=== PATIENT | male | born 1935 | race Caucasian/White ===

== ENCOUNTER 2017-02-28 06:47 | Inpatient (IN) | payer MEDICARE, OTHER ==
[~2017-02-28] VITALS: Ht 175.3 cm; Wt 79.9 kg
--- NOTE | 2017-02-28 07:24 | EKG ---
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
[2017-02-28 07:27] LABS: GFR 72.1; HEMATOCRIT 43.1 % (39.0-53.0); HEMOGLOBIN 14.8 g/dL (13.0-17.5); RED BLOOD COUNT 4.93 x10^6/uL (4.30-5.70); RED CELL DISTRIBUTION WIDTH 13.8 % (11.5-14.5); WHITE BLOOD COUNT 7.2 x10^3/uL (4.0-11.0)
[2017-02-28 07:34] LABS: PROTHROMBIN TIME PATIENT 12.8 SEC (11.7-14.0)
--- NOTE | 2017-02-28 08:00 | PHYS DOC ---
Past Medical History Past Medical History: High Cholesterol, Hypertension Past Surgical History: No Surgical History Alcohol Use: None Drug Use: None Adult General Chief Complaint Chief Complaint: HYPERTENSION HPI HPI 81-year-old male presenting to the emergency department today lasted normal at around midnight last night prior to going to bed. This morning he wakes up with numbness and tingling in his left hand and jaw with weakness. He reports symptoms that his left hand does not feel like his own. He also has difficulty buttoning his shirt and timing issues with his left hand. Patient took aspirin prior to arrival. Blood glucose within normal limits. He denies having any other major medical conditions. He has a history of high blood pressure and high cholesterol. He denies having history of diabetes. He denies having history of strokes. He does have a history of smoking. Location left arm. Duration intermittent. No alleviating or exacerbating factors present. Review of systems is negative for chest pain shortness of breath nausea vomiting fevers chills headache vision changes. He denies slurred speech. He denies gait instability. All other review of systems is negative unless otherwise noted in history of present illness. ED course: 81-year-old male presenting to the emergency department today with intermittent numbness of his left hand into his left jaw with difficulty tying his shoes and buttoning his shirt last known well at midnight last night. The patient does describe symptoms concerning for possible alien hand syndrome. CT head ordered. Blood work obtained. NIH stroke scale performed which showed a stroke scale of 0. Triage vital signs afebrile with a normal heart rate. Hypertensive upon arrival. Patient is resting comfortably examination room. EKG obtained without previous for comparison. Sinus rhythm with a regular rate. no afib. Patient has mild repolarization in lead V2 without reciprocal depression. Patient is not having clinical symptoms of ACS. T-wave flattening inversions in the inferior leads. Nonspecific. Blood work obtained and unremarkable. The patient was then admitted to our hospital for further evaluation workup including neurology consultation and probable MRI. Review of Systems Review of Systems SEE ABOVE. Allergies Allergies Allergies Coded Allergies Type Severity Reaction Last Updated Verified No Known Drug Allergies 02/28/17 No Physical Exam Physical Exam SEE ABOVE Constitutional: Well developed, well nourished, no acute distress, non-toxic appearance. HENT: Normocephalic, atraumatic, bilateral external ears normal, oropharynx moist, no oral exudates, nose normal. [] Eyes: PERRLA, EOMI, conjunctiva normal, no discharge. [] Neck: Normal range of motion, no tenderness, supple, no stridor. Cardiovascular:Heart rate regular rhythm, no murmur [] Lungs & Thorax: Bilateral breath sounds clear to auscultation Abdomen: Bowel sounds normal, soft, no tenderness, no masses, no pulsatile masses. [] Skin: Warm, dry, no erythema, no rash. Back: No tenderness, no CVA tenderness. [] Extremities: No tenderness, no cyanosis, no clubbing, ROM intact, no edema. [] Neurologic: Alert and oriented X 3, normal motor function, normal sensory function, no focal deficits noted. Psychologic: Affect normal, judgement normal, mood normal. [] Current Patient Data Vital Signs Vital Signs Date Time Temp Pulse Resp B/P (MAP) Pulse Ox O2 Delivery O2 Flow Rate FiO2 02/28/17 07:01 97.6 63 18 178/89 (118) 94 Room Air 97.6 Lab Values Laboratory Tests Test 02/28/17 07:05 White Blood Count 7.2 x10^3/uL (4.0-11.0) Red Blood Count 4.93 x10^6/uL (4.30-5.70) Hemoglobin 14.8 g/dL (13.0-17.5) Hematocrit 43.1 % (39.0-53.0) Mean Corpuscular Volume 87 fL (79-100) Mean Corpuscular Hemoglobin 30 pg (25-35) Mean Corpuscular Hemoglobin Concent 34 g/dL (31-37) Red Cell Distribution Width 13.8 % (11.5-14.5) Platelet Count 169 x10^3/uL (140-400) Prothrombin Time 12.8 SEC (11.7-14.0) Prothrombin Time INR 1.0 (0.8-1.1) PTT 27 SEC (24-38) Sodium Level 140 mmol/L (136-145) Potassium Level 4.0 mmol/L (3.5-5.1) Chloride Level 104 mmol/L (98-107) Carbon Dioxide Level 31 mmol/L (21-32) Anion Gap 5 (6-14) L Blood Urea Nitrogen 18 mg/dL (8-26) Creatinine 1.0 mg/dL (0.7-1.3) Estimated GFR (Cockcroft-Gault) 72.1 Glucose Level 105 mg/dL (70-99) H Calcium Level 9.0 mg/dL (8.5-10.1) Laboratory Tests 02/28/17 07:05 Laboratory Tests 02/28/17 07:05 EKG EKG [] Radiology/Procedures Radiology/Procedures [] Course & Med Decision Making Course & Med Decision Making Pertinent Labs and Imaging studies reviewed. (See chart for details) [] Dragon Disclaimer Dragon Disclaimer This electronic medical record was generated, in whole or in part, using a voice recognition dictation system. Departure Departure Impression: Primary Impression: TIA (transient ischemic attack) Disposition: ADMITTED INPATIENT Admitting Physician: Louis Moyer Condition: STABLE Referrals: NO PCP (PCP) KAMINI ZACARIAS MD Feb 28, 2017 08:00
--- NOTE | 2017-02-28 08:13 | RAD ---
Clinical indications: Woke up this morning with left-sided weakness and jaw pain.. Comparison: None available. Technique: Noncontrast axial cross sectional scanning of the head was performed. Findings: Mild generalized cerebral atrophy is seen. No acute intracranial hemorrhage or midline shift or mass-effect or hydrocephalus or extra-axial fluid collection is seen. Mild bilateral periventricular white matter hypodensity is seen consistent with chronic small vessel ischemic disease in this age group. No skull fracture or pneumocephalus is seen. No opacification of the mastoid sinuses or the paranasal sinuses is seen. The maxillary sinuses are not completely seen in this study. Impression: No acute intracranial hemorrhage is seen. Mild chronic small vessel ischemic disease. PQRS Compliance Statement: One or more of the following individualized dose reduction techniques were utilized for this examination: 1. Automated exposure control 2. Adjustment of the mA and/or kV according to patient size 3. Use of iterative reconstruction technique
[2017-02-28] MEDS ORDERED: ACETAMINOPHEN 325 MG TABLET. PO ONE (08:30)
--- NOTE | 2017-02-28 08:59 | PDOC2 ---
NEUROLOGY CONSULT Date of Admission Date of Admission DATE: 02/28/17 TIME: 08:52 Reason for Consult Reason for Consult: Stroke symptoms Referring Physician Referring Physician: Dr. Mitchell PCP: [facility] Source Source: Chart review, Patient History of Present Illness History of Present Illness Patient is a 81-year-old right-handed male who woke up about 3 AM this morning with left hand numbness. He has been noticing the problem for about a month actually intermittently, especially when he sleeps on that side. His left arm seems strange to him and was clumsy. There were no symptoms in the leg but he does admit to some paresthesias behind the left ear. He denies any headache or neck pain. He denies diplopia, dysphagia, or dysarthria. Symptoms resolved by the time he reached the emergency department. I discussed the case with Dr. Noel and we agreed the patient was not a candidate for alteplase. The patient takes listener PERRL. He does not know his cholesterol status. He did take some aspirin this morning but does not generally take aspirin. 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 14 point review of systems is negative. Physical Exam Physical Examination PHYSICAL EXAMINATION: Vital signs: see above. General appearance is normal and in no acute distress. HEENT: Normocephalic and nontraumatic. Eyes, nose, ears, and throat are unremarkable. Neck is supple. No lymphadenopathy. No bruits are heard over the carotid artery. No crepitus. NEUROLOGICAL EXAMINATION: Mental Status Examination: Alert. Oriented to time, place, and person. Answers questions and follows commends. Pupils are equal round and reactive to light and accommodation. Extraocular movements are intact. Visual field exam shows no defect on the direct confrontation. No motor or sensory deficits on the facial exam. Uvula in the midline and the soft palate elevated symmetrically. No deviation of the tongue to any direction. Gross hearing is normal. Shoulder shrug normal. Muscle tone is normal. Muscle strength is 5. Deep tendon reflexes are 2+ all around. Plantar reflex is with flexion response bilaterally. [id number] test performance is accurate. Tandem walk test is accurate. Alternative movements are accurate. Romberg test is negative. Gait is normal. Sensory exam shows no deficits. No cerebellar signs are elicited. Vitals VITALS Vital Signs Date Time Temp Pulse Resp B/P (MAP) Pulse Ox O2 Delivery O2 Flow Rate FiO2 02/28/17 07:01 97.6 63 18 178/89 (118) 94 Room Air 97.6 Labs Labs Laboratory Tests Test 02/28/17 07:05 White Blood Count 7.2 x10^3/uL (4.0-11.0) Red Blood Count 4.93 x10^6/uL (4.30-5.70) Hemoglobin 14.8 g/dL (13.0-17.5) Hematocrit 43.1 % (39.0-53.0) Mean Corpuscular Volume 87 fL (79-100) Mean Corpuscular Hemoglobin 30 pg (25-35) Mean Corpuscular Hemoglobin Concent 34 g/dL (31-37) Red Cell Distribution Width 13.8 % (11.5-14.5) Platelet Count 169 x10^3/uL (140-400) Prothrombin Time 12.8 SEC (11.7-14.0) Prothromb Time International Ratio 1.0 (0.8-1.1) Activated Partial Thromboplast Time 27 SEC (24-38) Sodium Level 140 mmol/L (136-145) Potassium Level 4.0 mmol/L (3.5-5.1) Chloride Level 104 mmol/L (98-107) Carbon Dioxide Level 31 mmol/L (21-32) Anion Gap 5 (6-14) Blood Urea Nitrogen 18 mg/dL (8-26) Creatinine 1.0 mg/dL (0.7-1.3) Estimated GFR (Cockcroft-Gault) 72.1 Glucose Level 105 mg/dL (70-99) Calcium Level 9.0 mg/dL (8.5-10.1) Laboratory Tests Test 02/28/17 07:05 White Blood Count 7.2 x10^3/uL (4.0-11.0) Red Blood Count 4.93 x10^6/uL (4.30-5.70) Hemoglobin 14.8 g/dL (13.0-17.5) Hematocrit 43.1 % (39.0-53.0) Mean Corpuscular Volume 87 fL (79-100) Mean Corpuscular Hemoglobin 30 pg (25-35) Mean Corpuscular Hemoglobin Concent 34 g/dL (31-37) Red Cell Distribution Width 13.8 % (11.5-14.5) Platelet Count 169 x10^3/uL (140-400) Prothrombin Time 12.8 SEC (11.7-14.0) Prothromb Time International Ratio 1.0 (0.8-1.1) Activated Partial Thromboplast Time 27 SEC (24-38) Sodium Level 140 mmol/L (136-145) Potassium Level 4.0 mmol/L (3.5-5.1) Chloride Level 104 mmol/L (98-107) Carbon Dioxide Level 31 mmol/L (21-32) Anion Gap 5 (6-14) Blood Urea Nitrogen 18 mg/dL (8-26) Creatinine 1.0 mg/dL (0.7-1.3) Estimated GFR (Cockcroft-Gault) 72.1 Glucose Level 105 mg/dL (70-99) Calcium Level 9.0 mg/dL (8.5-10.1) Images Images CT head: Findings: Mild generalized cerebral atrophy is seen. No acute intracranial hemorrhage or midline shift or mass-effect or hydrocephalus or extra-axial fluid collection is seen. Mild bilateral periventricular white matter hypodensity is seen consistent with chronic small vessel ischemic disease in this age group. No skull fracture or pneumocephalus is seen. No opacification of the mastoid sinuses or the paranasal sinuses is seen. The maxillary sinuses are not completely seen in this study. Impression: No acute intracranial hemorrhage is seen. Mild chronic small vessel ischemic disease. Assessment/Plan Assessment/Plan Impression: Transient ischemic attack, symptoms could simply be entrapment neuropathy such as carpal tunnel but he also had some trouble in the head with numbness. He has been having symptoms for nearly a month so it is very important for admission, most likely 2 midnight, to make sure that he does not have any occlusive disease that could cause a full stroke. However, since symptoms have resolved, as already discussed above, he is not a candidate for alteplase. Recommendations: Daily aspirin MRI of the brain Echocardiogram Carotid Dopplers Rehabilitation screening Atorvastatin Check lipids If all workup negative, the patient should follow-up in my office for an EMG study of the left upper extremity. Thank you for letting me help with the patient's care. ORTEGA MUNROE MD Feb 28, 2017 08:59
[2017-02-28] MEDS ORDERED: ACETAMINOPHEN 650 MG SUPP.RECT. PR PRN (09:00)
[2017-02-28] MEDS ORDERED: ACETAMINOPHEN 325 MG TABLET. PO PRN ×2 (09:00→14:45)
[2017-02-28 09:09] LABS: CHOLESTEROL/HDL RATIO 3.4
[2017-02-28] MEDS ORDERED: IV NORMAL SALINE 1000ML BAG 1,000 ML IV SCH (09:30)
[2017-02-28] MEDS: ASPIRIN CHEWABLE 81 MG TABLET. PO SCH (09:30)
--- NOTE | 2017-02-28 10:18 | RAD ---
EXAM: Brain MRI without contrast. HISTORY: Left-sided weakness. TECHNIQUE: Multiplanar, multisequence magnetic resonance imaging of the brain was performed without contrast. COMPARISON: Head CT obtained on the same date. FINDINGS: There are small focal areas of slight increased signal on diffusion weighted images within the posterior right frontal and parietal lobe cortex, suggesting small subacute infarcts. There is similar less conspicuous increased signal within the contralateral parietal cortex which is likely artifactual. There is no susceptibility effect to suggest hemorrhage. There is no mass effect or midline shift. There is cerebral volume loss with compensatory enlargement of the ventricles. There is signal change within the cerebral white matter and margarette, a nonspecific finding likely due to chronic small vessel disease. There is a suspected chronic lacunar infarct within the left thalamus. There is evidence of lens surgery. There is a right sam bullosa and small left maxillary sinus mucous retention cyst. The mastoid air cells are unremarkable. There is decreased flow void within the right vertebral artery at the skull base which is not seen on consecutive images and likely due to artifact rather than low flow or occlusion. IMPRESSION: 1. Small areas of increased signal on diffusion weighted images within the posterior right frontal and parietal lobe cortex and subcortical white matter, suggesting subacute infarcts. 2. Signal change within the cerebral white matter and margarette, likely due to chronic small vessel disease. 3. Cerebral atrophy. Findings were discussed with Dr. Noel in the ED at 0945 hours on 02/28/2017. Electronically signed by: Marlen Buckley MD (02/28/2017 10:15 AM) [id number]
[2017-02-28 11:00] VITALS: BP 189/79
--- NOTE | 2017-02-28 13:34 | RAD ---
EXAM: Carotid Doppler sonogram. HISTORY: Left arm and hand numbness. Transient ischemic attack. TECHNIQUE: Quiles scale and color Doppler sonographic evaluation of the neck with spectral waveform analysis was performed and static images are submitted for review. FINDINGS: RIGHT: The peak systolic velocity within the common carotid artery is 113 cm/sec. The peak systolic velocity within the internal carotid artery is 370 cm/sec and the end diastolic velocity within the internal carotid artery is 104 cm/sec. The ICA/CCA ratio is 3.8. LEFT: The peak systolic velocity within the common carotid artery is 123 cm/sec. The peak systolic velocity within the internal carotid artery is 273 cm/sec and the end diastolic velocity within the internal carotid artery is 47 cm/sec. The ICA/CCA ratio is 2.6. There is antegrade flow within both vertebral arteries. IMPRESSION: 1. >70% stenosis in the right mid and distal internal carotid artery. 2. >70% stenosis within the left mid internal carotid artery. 3. Ongoing management is recommended. PQRS Compliance Statement - Stenosis calculations for CT, MR and conventional angiography are based upon measurement of the distal ICA diameter in accordance with the NASCET methodology. Stenosis calculations for carotid ultrasound studies are derived from validated velocity criteria which are known to correlate with the NASCET methodology.
--- NOTE | 2017-02-28 14:44 | PDOC1 ---
History and Physical Date of Admission Date of Admission 02/28/17 Identification/Chief Complaint Chief Complaint left arm/hand numbness, weakness Problems: Source Source: Chart review, Patient History of Present Illness History of Present Illness HPI HPI 81-year-old male presenting to the emergency department today for left arm/ hand numbness and weakness. Pt has HTN, HLD , BP usually runs at 170s. He has had left hand numbness with mild finger weakness intermittently for a few weeks. last night got worse and came here. Rt handed. denies headache, slurry speech ,swallow problem, or other neurologic deficit. when i saw him in the room, the symptoms are gone. took asa before, not recently. He denies having history of strokes. He does have a history of smoking. pt was found bp >200 in ER, was put on cardine drip. MRI showed subacute stroke. Past Medical History Cardiovascular: HTN, Hyperlipidemia Past Surgical History Past Surgical History: No pertinent history Family History Family History: Hypertension Social History Smoke: Quit ALCOHOL: other (3 beers weekly) Drugs: None Current Problem List Problem List Problems Medical Problems: (1) TIA (transient ischemic attack) Status: Acute Current Medications Current Medications Current Medications Medications (Trade) Dose Ordered Sig/Naa Start Time Stop Time Status Last Admin Dose Admin Acetaminophen (Acetaminophen Supp) 650 mg PRN Q4HRS PRN 02/28/17 09:00 Acetaminophen (Tylenol) 650 mg PRN Q6HRS PRN 02/28/17 09:00 Aspirin (Children'S Aspirin) 81 mg [id number] 02/28/17 09:30 Nicardipine HCl 50 mg/Sodium Chloride 270 ml @ 0 mls/hr CONT PRN 02/28/17 08:15 02/28/17 11:36 DC 02/28/17 08:25 25 MLS/HR Simvastatin (Zocor) 10 mg QHS 02/28/17 21:00 Sodium Chloride 1,000 ml @ 100 mls/hr Q10H 02/28/17 09:30 02/28/17 09:52 100 MLS/HR Allergies Allergies Allergies Coded Allergies Type Severity Reaction Last Updated Verified No Known Drug Allergies 02/28/17 No ROS Review of System CONSTITUTIONAL: No fever or chills EYES: No recent changes SKIN: No rash or itching CARDIOVASCULAR: No chest pain, syncope, palpitations, or edema RESPIRATORY: No SOB or cough GASTROINTESTINAL: No nausea, vomiting or abdominal pain NEUROLOGICAL: No headaches or weakness ENDOCRINE: No cold or heat intolerance GENITOURINARY: No urgency or frequency of urination MUSCULOSKELETAL: No back pain or joint pain LYMPHATICS: No enlarged lymph nodes PSYCHIATRIC: No anxiety or depression Physical Exam Physical Exam GEN.: No apparent distress. Alert and oriented. HEENT: Head is normocephalic, atraumatic NECK: Supple. LUNGS: Clear to auscultation. HEART: RRR, S1, S2 present. Peripheral pulses intact ABDOMEN: Soft, nontender. Positive bowel sounds. EXTREMITIES: Without any cyanosis. bl hands strength symmetric, 5/5. NEUROLOGIC: Normal speech, normal tone PSYCHIATRIC: Normal affect, normal mood. SKIN: No ulcerations Vitals Vitals Vital Signs Date Time Temp Pulse Resp B/P (MAP) Pulse Ox O2 Delivery O2 Flow Rate FiO2 02/28/17 13:47 Room Air 02/28/17 11:00 97.9 81 18 189/79 (115) 96 97.9 Labs Labs Laboratory Tests Test 02/28/17 07:05 White Blood Count 7.2 x10^3/uL (4.0-11.0) Red Blood Count 4.93 x10^6/uL (4.30-5.70) Hemoglobin 14.8 g/dL (13.0-17.5) Hematocrit 43.1 % (39.0-53.0) Mean Corpuscular Volume 87 fL (79-100) Mean Corpuscular Hemoglobin 30 pg (25-35) Mean Corpuscular Hemoglobin Concent 34 g/dL (31-37) Red Cell Distribution Width 13.8 % (11.5-14.5) Platelet Count 169 x10^3/uL (140-400) Prothrombin Time 12.8 SEC (11.7-14.0) Prothromb Time International Ratio 1.0 (0.8-1.1) Activated Partial Thromboplast Time 27 SEC (24-38) Sodium Level 140 mmol/L (136-145) Potassium Level 4.0 mmol/L (3.5-5.1) Chloride Level 104 mmol/L (98-107) Carbon Dioxide Level 31 mmol/L (21-32) Anion Gap 5 (6-14) Blood Urea Nitrogen 18 mg/dL (8-26) Creatinine 1.0 mg/dL (0.7-1.3) Estimated GFR (Cockcroft-Gault) 72.1 Glucose Level 105 mg/dL (70-99) Calcium Level 9.0 mg/dL (8.5-10.1) Triglycerides Level 64 mg/dL (0-150) Cholesterol Level 189 mg/dL (0-200) LDL Cholesterol, Calculated 120 mg/dL (0-100) VLDL Cholesterol, Calculated 13 mg/dL (0-40) Non-HDL Cholesterol Calculated 133 mg/dL (0-129) HDL Cholesterol 56 mg/dL (40-60) Cholesterol/HDL Ratio 3.4 Laboratory Tests Test 02/28/17 07:05 White Blood Count 7.2 x10^3/uL (4.0-11.0) Red Blood Count 4.93 x10^6/uL (4.30-5.70) Hemoglobin 14.8 g/dL (13.0-17.5) Hematocrit 43.1 % (39.0-53.0) Mean Corpuscular Volume 87 fL (79-100) Mean Corpuscular Hemoglobin 30 pg (25-35) Mean Corpuscular Hemoglobin Concent 34 g/dL (31-37) Red Cell Distribution Width 13.8 % (11.5-14.5) Platelet Count 169 x10^3/uL (140-400) Prothrombin Time 12.8 SEC (11.7-14.0) Prothromb Time International Ratio 1.0 (0.8-1.1) Activated Partial Thromboplast Time 27 SEC (24-38) Sodium Level 140 mmol/L (136-145) Potassium Level 4.0 mmol/L (3.5-5.1) Chloride Level 104 mmol/L (98-107) Carbon Dioxide Level 31 mmol/L (21-32) Anion Gap 5 (6-14) Blood Urea Nitrogen 18 mg/dL (8-26) Creatinine 1.0 mg/dL (0.7-1.3) Estimated GFR (Cockcroft-Gault) 72.1 Glucose Level 105 mg/dL (70-99) Calcium Level 9.0 mg/dL (8.5-10.1) Triglycerides Level 64 mg/dL (0-150) Cholesterol Level 189 mg/dL (0-200) LDL Cholesterol, Calculated 120 mg/dL (0-100) VLDL Cholesterol, Calculated 13 mg/dL (0-40) Non-HDL Cholesterol Calculated 133 mg/dL (0-129) HDL Cholesterol 56 mg/dL (40-60) Cholesterol/HDL Ratio 3.4 VTE Prophylaxis Ordered VTE Prophylaxis Devices: Yes VTE Pharmacological Prophylaxi: Yes Assessment/Plan Assessment/Plan right frontal and parietal lob small subacute stroke htn urgency hld bl carotid internal A >70% stenosis plan: dc cardine drip fu with neuro echo pending need home meds BP STILL high ,add lisinopril for now, hydralazine prn add lipitor cont asa dvt ppx vascular consult TERESO MILLER MD Feb 28, 2017 14:44
[2017-02-28] MEDS ORDERED: MORPHINE SULFATE 4 MG/ML DISP.SYRIN. IV PRN (14:45)
[2017-02-28] MEDS ORDERED: traMADol 50 MG TABLET PO PRN (14:45)
[2017-02-28] MEDS ORDERED: ONDANSETRON PF 4 MG/2 ML VIAL. IV PRN (14:45)
[2017-02-28] MEDS ORDERED: DOCUSATE SODIUM 100 MG CAPSULE. PO PRN (14:45)
[2017-02-28 14:59] VITALS: BP 146/81
[2017-02-28] MEDS ORDERED: LISINOPRIL 40 MG TABLET. PO SCH (15:00)
[2017-02-28] MEDS: ENOXAPARIN 40 MG/0.4 ML SYRINGE. SQ SCH (15:36)
[2017-02-28] MEDS: hydrALAZINE 20 MG/ML VIAL. IVP PRN (18:30)
[2017-02-28 19:00] VITALS: BP 147/87
[2017-02-28] MEDS ORDERED: ATEN25TA PO (20:19)
[2017-02-28] MEDS: ATORVASTATIN CALCIUM 40 MG TABLET. PO SCH (20:45)
[2017-02-28] MEDS ORDERED: SIMVASTATIN 10 MG TABLET PO SCH (21:00)
[2017-02-28 22:03] VITALS: BP 161/79
[2017-03-01] VITALS (7 sets, daily range): BP systolic 152–185; BP diastolic 83–96
[2017-03-01 05:37] LABS: BASO # 0.1 x10^3/uL (0.0-0.2); BASO % 1 % (0-3); EOS % 2 % (0-3); HEMATOCRIT 42.6 % (39.0-53.0); HEMOGLOBIN 14.4 g/dL (13.0-17.5); LYMPH # 1.9 x10^3/uL (1.0-4.8); LYMPH % 22 % (24-48); MEAN CORPUSCULAR HEMOGLOBIN 30 pg (25-35); MEAN CORPUSCULAR HGB CONC 34 g/dL (31-37); MEAN CORPUSCULAR VOLUME 88 fL (79-100); MONO % 10 % (0-9); NEUT % 66 % (31-73); PLATELET COUNT 170 x10^3/uL (140-400); RED BLOOD COUNT 4.84 x10^6/uL (4.30-5.70); RED CELL DISTRIBUTION WIDTH 13.9 % (11.5-14.5); WHITE BLOOD COUNT 8.5 x10^3/uL (4.0-11.0)
[2017-03-01 06:01] LABS: CALCIUM 8.6 mg/dL (8.5-10.1); GFR 72.1; POTASSIUM 3.5 mmol/L (3.5-5.1)
[2017-03-01] MEDS: ATENOLOL 25 MG TABLET. PO SCH (07:51)
[2017-03-01] MEDS: ASPIRIN CHEWABLE 81 MG TABLET. PO SCH (07:51)
[2017-03-01] MEDS: CLOPIDOGREL BISULFATE 75 MG TABLET PO SCH (08:04)
--- NOTE | 2017-03-01 08:09 | PDOC ---
Provider Note Provider Note Vascular Consult dictated Imp: Severe tiffanie. carotid stenosis, symptomatic rt. carotid Plan: Plavix in addition to ASA daily, Recommend a rt. carotid endarterectomy early next week, Pt. wants to go home and wants me to do surgery but I am out of town next week. Will schedule rt. CEA for Feb. If pt. developes more symptoms then he would need an urgent rt. CEA. Will inform Dr. Lau who is work station support specialist GERA CONTE MD Mar 01, 2017 08:09
--- NOTE | 2017-03-01 11:58 | PDOC ---
PROGRESS NOTES Chief Complaint Chief Complaint right frontal and parietal lob small subacute stroke htn urgency hld bl carotid internal A >70% stenosis History of Present Illness History of Present Illness Pt seen at bedside on cardiovascular floor. Is AOCx3 in NAD. Pt was educated on doing CEA as inpatient or scheduling procedure as an outpatient; per Dr. Alvarez it is preferred that he remain here for time being to undergo procedure on inpatient basis. Will continue to monitor. Vitals Vitals Vital Signs Date Time Temp Pulse Resp B/P (MAP) Pulse Ox O2 Delivery O2 Flow Rate FiO2 03/01/17 11:00 97.7 62 18 174/96 (122) 97 Room Air 97.7 Physical Exam General: Alert, Oriented X3, Cooperative, No acute distress Heart: Regular rate, Normal S1, Normal S2 Lungs: Clear Abdomen: Normal bowel sounds, Soft, No tenderness Extremities: No clubbing, No cyanosis, No edema, Normal pulses Skin: No rashes, No breakdown, No significant lesion Labs LABS Laboratory Tests Test 03/01/17 05:00 White Blood Count 8.5 x10^3/uL (4.0-11.0) Red Blood Count 4.84 x10^6/uL (4.30-5.70) Hemoglobin 14.4 g/dL (13.0-17.5) Hematocrit 42.6 % (39.0-53.0) Mean Corpuscular Volume 88 fL (79-100) Mean Corpuscular Hemoglobin 30 pg (25-35) Mean Corpuscular Hemoglobin Concent 34 g/dL (31-37) Red Cell Distribution Width 13.9 % (11.5-14.5) Platelet Count 170 x10^3/uL (140-400) Neutrophils (%) (Auto) 66 % (31-73) Lymphocytes (%) (Auto) 22 % (24-48) Monocytes (%) (Auto) 10 % (0-9) Eosinophils (%) (Auto) 2 % (0-3) Basophils (%) (Auto) 1 % (0-3) Neutrophils # (Auto) 5.6 x10^3uL (1.8-7.7) Lymphocytes # (Auto) 1.9 x10^3/uL (1.0-4.8) Monocytes # (Auto) 0.8 x10^3/uL (0.0-1.1) Eosinophils # (Auto) 0.1 x10^3/uL (0.0-0.7) Basophils # (Auto) 0.1 x10^3/uL (0.0-0.2) Sodium Level 141 mmol/L (136-145) Potassium Level 3.5 mmol/L (3.5-5.1) Chloride Level 105 mmol/L (98-107) Carbon Dioxide Level 28 mmol/L (21-32) Anion Gap 8 (6-14) Blood Urea Nitrogen 13 mg/dL (8-26) Creatinine 1.0 mg/dL (0.7-1.3) Estimated GFR (Cockcroft-Gault) 72.1 Glucose Level 96 mg/dL (70-99) Calcium Level 8.6 mg/dL (8.5-10.1) Review of Systems Review of Systems Pt AOCx3, in NAD. Heart RRR no M. Lungs clear in all [place]. EOMI b/l, no facial palsy, no dysarthria. Assessment and Plan Assessmemt and Plan Problems Medical Problems: (1) TIA (transient ischemic attack) Status: Acute right frontal and parietal lob small subacute stroke htn urgency hld bl carotid internal A >70% stenosis plan: PT/OT Cont. home meds Cont new BP meds, lipitor F/u w/ Dr. Alvarez Friday when ok w/ cardiology and vasc. surgeon Problems: Comment Review of Relevant I have reviewed the following items michelle (where applicable) has been applied. Labs Laboratory Tests Test 02/28/17 07:05 03/01/17 05:00 White Blood Count 7.2 x10^3/uL (4.0-11.0) 8.5 x10^3/uL (4.0-11.0) Red Blood Count 4.93 x10^6/uL (4.30-5.70) 4.84 x10^6/uL (4.30-5.70) Hemoglobin 14.8 g/dL (13.0-17.5) 14.4 g/dL (13.0-17.5) Hematocrit 43.1 % (39.0-53.0) 42.6 % (39.0-53.0) Mean Corpuscular Volume 87 fL (79-100) 88 fL (79-100) Mean Corpuscular Hemoglobin 30 pg (25-35) 30 pg (25-35) Mean Corpuscular Hemoglobin Concent 34 g/dL (31-37) 34 g/dL (31-37) Red Cell Distribution Width 13.8 % (11.5-14.5) 13.9 % (11.5-14.5) Platelet Count 169 x10^3/uL (140-400) 170 x10^3/uL (140-400) Prothrombin Time 12.8 SEC (11.7-14.0) Prothromb Time International Ratio 1.0 (0.8-1.1) Activated Partial Thromboplast Time 27 SEC (24-38) Sodium Level 140 mmol/L (136-145) 141 mmol/L (136-145) Potassium Level 4.0 mmol/L (3.5-5.1) 3.5 mmol/L (3.5-5.1) Chloride Level 104 mmol/L (98-107) 105 mmol/L (98-107) Carbon Dioxide Level 31 mmol/L (21-32) 28 mmol/L (21-32) Anion Gap 5 (6-14) 8 (6-14) Blood Urea Nitrogen 18 mg/dL (8-26) 13 mg/dL (8-26) Creatinine 1.0 mg/dL (0.7-1.3) 1.0 mg/dL (0.7-1.3) Estimated GFR (Cockcroft-Gault) 72.1 72.1 Glucose Level 105 mg/dL (70-99) 96 mg/dL (70-99) Calcium Level 9.0 mg/dL (8.5-10.1) 8.6 mg/dL (8.5-10.1) Triglycerides Level 64 mg/dL (0-150) Cholesterol Level 189 mg/dL (0-200) LDL Cholesterol, Calculated 120 mg/dL (0-100) VLDL Cholesterol, Calculated 13 mg/dL (0-40) Non-HDL Cholesterol Calculated 133 mg/dL (0-129) HDL Cholesterol 56 mg/dL (40-60) Cholesterol/HDL Ratio 3.4 Neutrophils (%) (Auto) 66 % (31-73) Lymphocytes (%) (Auto) 22 % (24-48) Monocytes (%) (Auto) 10 % (0-9) Eosinophils (%) (Auto) 2 % (0-3) Basophils (%) (Auto) 1 % (0-3) Neutrophils # (Auto) 5.6 x10^3uL (1.8-7.7) Lymphocytes # (Auto) 1.9 x10^3/uL (1.0-4.8) Monocytes # (Auto) 0.8 x10^3/uL (0.0-1.1) Eosinophils # (Auto) 0.1 x10^3/uL (0.0-0.7) Basophils # (Auto) 0.1 x10^3/uL (0.0-0.2) Laboratory Tests Test 03/01/17 05:00 White Blood Count 8.5 x10^3/uL (4.0-11.0) Red Blood Count 4.84 x10^6/uL (4.30-5.70) Hemoglobin 14.4 g/dL (13.0-17.5) Hematocrit 42.6 % (39.0-53.0) Mean Corpuscular Volume 88 fL (79-100) Mean Corpuscular Hemoglobin 30 pg (25-35) Mean Corpuscular Hemoglobin Concent 34 g/dL (31-37) Red Cell Distribution Width 13.9 % (11.5-14.5) Platelet Count 170 x10^3/uL (140-400) Neutrophils (%) (Auto) 66 % (31-73) Lymphocytes (%) (Auto) 22 % (24-48) Monocytes (%) (Auto) 10 % (0-9) Eosinophils (%) (Auto) 2 % (0-3) Basophils (%) (Auto) 1 % (0-3) Neutrophils # (Auto) 5.6 x10^3uL (1.8-7.7) Lymphocytes # (Auto) 1.9 x10^3/uL (1.0-4.8) Monocytes # (Auto) 0.8 x10^3/uL (0.0-1.1) Eosinophils # (Auto) 0.1 x10^3/uL (0.0-0.7) Basophils # (Auto) 0.1 x10^3/uL (0.0-0.2) Sodium Level 141 mmol/L (136-145) Potassium Level 3.5 mmol/L (3.5-5.1) Chloride Level 105 mmol/L (98-107) Carbon Dioxide Level 28 mmol/L (21-32) Anion Gap 8 (6-14) Blood Urea Nitrogen 13 mg/dL (8-26) Creatinine 1.0 mg/dL (0.7-1.3) Estimated GFR (Cockcroft-Gault) 72.1 Glucose Level 96 mg/dL (70-99) Calcium Level 8.6 mg/dL (8.5-10.1) Microbiology 02/28/17 Blood Culture - Preliminary, Resulted NO GROWTH AFTER 1 DAY Medications Current Medications Nicardipine HCl 50 mg/Sodium Chloride 270 ml @ 0 mls/hr CONT PRN IV SEE I/O RECORD Last administered on 02/28/17 08:25; Start 02/28/17 at 08:15; Stop at 11:36; Status DC Acetaminophen (Tylenol) 650 mg 1X ONCE PO Last administered on 02/28/17 08: 30; Start 02/28/17 at 08:30; Stop 02/28/17 at 08:31; Status DC Sodium Chloride 1,000 ml @ 100 mls/hr Q10H IV Last administered on 02/28/17 09:52; Start 02/28/17 at 09:30; Stop 02/28/17 at 14:37; Status DC Simvastatin (Zocor) 10 mg QHS PO ; Start 02/28/17 at 21:00; Stop 02/28/17 at 21:00; Status DC Acetaminophen (Tylenol) 650 mg PRN Q6HRS PRN PO TEMP > 100.4F; Start 02/28/17 at 09:00 Acetaminophen (Acetaminophen Supp) 650 mg PRN Q4HRS PRN OR TEMP > 100.4F; Start 02/28/17 at 09:00; Stop 02/28/17 at 14:37; Status DC Aspirin (Children'S Aspirin) 81 mg DAILYWBKFT PO Last administered on 07:51; Start 02/28/17 at 09:30 Acetaminophen (Tylenol) 650 mg PRN Q6HRS PRN PO FEVER; Start 02/28/17 at 14:45 ; Stop 03/01/17 at 07:59; Status DC Ondansetron HCl (Zofran) 4 mg PRN Q6HRS PRN IV NAUSEA/VOMITING; Start at 14:45 Morphine Sulfate 2 mg PRN Q2HR PRN IV PAIN; Start 02/28/17 at 14:45 Tramadol HCl (Ultram) 50 mg PRN Q6HRS PRN PO PAIN; Start 02/28/17 at 14:45 Hydralazine HCl (Apresoline Inj) 10 mg PRN Q4HRS PRN IVP ELEVATED BP, SEE COMMENTS Last administered on 02/28/17 18:30; Start 02/28/17 at 14:45 Docusate Sodium (Colace) 100 mg PRN DAILY PRN PO CONSTIPATION; Start 02/28/17 at 14:45 Atorvastatin Calcium (Lipitor) 40 mg QHS PO Last administered on 02/28/17 20: 45; Start 02/28/17 at 21:00 Enoxaparin Sodium (Lovenox 40mg Syringe) 40 mg Q24H SQ Last administered on 15:36; Start 02/28/17 at 15:00 Lisinopril (Prinivil) 40 mg DAILY PO ; Start 02/28/17 at 15:00; Stop 02/28/17 at 15:25; Status DC Atenolol (Tenormin) 25 mg DAILY PO Last administered on 03/01/17 07:51; Start 03/01/17 at 09:00 Clopidogrel Bisulfate (Plavix) 75 mg DAILYWBKFT PO Last administered on 08:04; Start 03/01/17 at 08:00 Active Scripts Active Reported Atenolol 25 Mg Tablet 1 Tab PO DAILY Vitals/I & O Vital Sign - Last 24 Hours 02/28/17 02/28/17 02/28/17 02/28/17 13:47 14:59 18:30 19:00 Temp 97.9 98.1 97.9 98.1 Pulse 65 69 96 Resp 18 18 B/P (MAP) 146/81 (102) 190/84 147/87 (107) Pulse Ox 95 95 O2 Delivery Room Air Room Air Room Air 02/28/17 02/28/17 03/01/17 03/01/17 20:12 22:03 02:53 07:00 Temp 97.7 98.0 97.6 97.7 98.0 97.6 Pulse 70 76 63 Resp 18 16 18 B/P (MAP) 161/79 (106) 166/85 (112) 185/86 (119) Pulse Ox 96 97 97 O2 Delivery Room Air Room Air Room Air Room Air 03/01/17 03/01/17 03/01/17 03/01/17 07:51 08:01 09:28 11:00 Temp 97.7 97.7 Pulse 65 60 62 Resp 18 B/P (MAP) 185/86 161/90 (113) 174/96 (122) Pulse Ox 97 O2 Delivery Room Air Room Air Intake and Output 03/01/17 03/01/17 03/02/17 15:00 23:00 07:00 Output Total 125 ml Balance -125 ml CHAD GLASER III DO Mar 01, 2017 11:58
[2017-03-01] MEDS: ENOXAPARIN 40 MG/0.4 ML SYRINGE. SQ SCH (14:53)
--- NOTE | 2017-03-01 15:36 | PDOC ---
PROGRESS NOTES Assessment 1. Bilateral carotid stenosis greater than 70% 2. Acute stroke, very tiny, right hemisphere and posterior frontal region. 3. Hyperlipidemia with an elevated LDL greater than 100. He reports a prior adverse reaction to simvastatin. 4. Has been on daily aspirin for the last month but has clearly failed aspirin. Plan 1. He has seen the vascular surgeon who will perform a right carotid endarterectomy on Friday to address the high-grade stenosis. The right is the symptomatic side. The stroke is very tiny so I do not believe this would be a major risk for reperfusion injury. 2. He may not require outpatient therapy has he is symptomatically much improved. 3. He has been started on atorvastatin 40 mg for hyperlipidemia. This is appropriate for stroke risk modification. We will need to keep an eye on the liver enzymes this is may have been affected with the simvastatin. A lower dose may be better tolerated. 4. He has failed aspirin therapy. I would initiate Plavix 75 mg daily postoperatively when acceptable from the surgeon. Subjective I feel okay. It feels like my left side is doing better. They plan on doing a surgery to my artery on Friday. Objective Vital Signs Date Time Temp Pulse Resp B/P (MAP) Pulse Ox O2 Delivery O2 Flow Rate FiO2 03/01/17 14:45 97.5 63 17 166/84 (111) 97 Room Air 97.5 Intake and Output 03/02/17 07:00 Output Total 125 ml Balance -125 ml Output Urine Total 125 ml # Voids 1 PHYSICAL EXAM He was alert, awake and cooperative. Speech was fluent and clear. He had a good fund of recent and remote knowledge. He was getting confused as to the doctor seen and there specialty. The eyes were conjugate and face symmetric. Movements were symmetric in the arms and legs. He was able to walk with good balance. Review of Relevant I have reviewed the following items michelle (where applicable) has been applied. Labs Laboratory Tests Test 02/28/17 07:05 03/01/17 05:00 White Blood Count 7.2 x10^3/uL (4.0-11.0) 8.5 x10^3/uL (4.0-11.0) Red Blood Count 4.93 x10^6/uL (4.30-5.70) 4.84 x10^6/uL (4.30-5.70) Hemoglobin 14.8 g/dL (13.0-17.5) 14.4 g/dL (13.0-17.5) Hematocrit 43.1 % (39.0-53.0) 42.6 % (39.0-53.0) Mean Corpuscular Volume 87 fL (79-100) 88 fL (79-100) Mean Corpuscular Hemoglobin 30 pg (25-35) 30 pg (25-35) Mean Corpuscular Hemoglobin Concent 34 g/dL (31-37) 34 g/dL (31-37) Red Cell Distribution Width 13.8 % (11.5-14.5) 13.9 % (11.5-14.5) Platelet Count 169 x10^3/uL (140-400) 170 x10^3/uL (140-400) Prothrombin Time 12.8 SEC (11.7-14.0) Prothromb Time International Ratio 1.0 (0.8-1.1) Activated Partial Thromboplast Time 27 SEC (24-38) Sodium Level 140 mmol/L (136-145) 141 mmol/L (136-145) Potassium Level 4.0 mmol/L (3.5-5.1) 3.5 mmol/L (3.5-5.1) Chloride Level 104 mmol/L (98-107) 105 mmol/L (98-107) Carbon Dioxide Level 31 mmol/L (21-32) 28 mmol/L (21-32) Anion Gap 5 (6-14) 8 (6-14) Blood Urea Nitrogen 18 mg/dL (8-26) 13 mg/dL (8-26) Creatinine 1.0 mg/dL (0.7-1.3) 1.0 mg/dL (0.7-1.3) Estimated GFR (Cockcroft-Gault) 72.1 72.1 Glucose Level 105 mg/dL (70-99) 96 mg/dL (70-99) Calcium Level 9.0 mg/dL (8.5-10.1) 8.6 mg/dL (8.5-10.1) Triglycerides Level 64 mg/dL (0-150) Cholesterol Level 189 mg/dL (0-200) LDL Cholesterol, Calculated 120 mg/dL (0-100) VLDL Cholesterol, Calculated 13 mg/dL (0-40) Non-HDL Cholesterol Calculated 133 mg/dL (0-129) HDL Cholesterol 56 mg/dL (40-60) Cholesterol/HDL Ratio 3.4 Neutrophils (%) (Auto) 66 % (31-73) Lymphocytes (%) (Auto) 22 % (24-48) Monocytes (%) (Auto) 10 % (0-9) Eosinophils (%) (Auto) 2 % (0-3) Basophils (%) (Auto) 1 % (0-3) Neutrophils # (Auto) 5.6 x10^3uL (1.8-7.7) Lymphocytes # (Auto) 1.9 x10^3/uL (1.0-4.8) Monocytes # (Auto) 0.8 x10^3/uL (0.0-1.1) Eosinophils # (Auto) 0.1 x10^3/uL (0.0-0.7) Basophils # (Auto) 0.1 x10^3/uL (0.0-0.2) Laboratory Tests Test 03/01/17 05:00 White Blood Count 8.5 x10^3/uL (4.0-11.0) Red Blood Count 4.84 x10^6/uL (4.30-5.70) Hemoglobin 14.4 g/dL (13.0-17.5) Hematocrit 42.6 % (39.0-53.0) Mean Corpuscular Volume 88 fL (79-100) Mean Corpuscular Hemoglobin 30 pg (25-35) Mean Corpuscular Hemoglobin Concent 34 g/dL (31-37) Red Cell Distribution Width 13.9 % (11.5-14.5) Platelet Count 170 x10^3/uL (140-400) Neutrophils (%) (Auto) 66 % (31-73) Lymphocytes (%) (Auto) 22 % (24-48) Monocytes (%) (Auto) 10 % (0-9) Eosinophils (%) (Auto) 2 % (0-3) Basophils (%) (Auto) 1 % (0-3) Neutrophils # (Auto) 5.6 x10^3uL (1.8-7.7) Lymphocytes # (Auto) 1.9 x10^3/uL (1.0-4.8) Monocytes # (Auto) 0.8 x10^3/uL (0.0-1.1) Eosinophils # (Auto) 0.1 x10^3/uL (0.0-0.7) Basophils # (Auto) 0.1 x10^3/uL (0.0-0.2) Sodium Level 141 mmol/L (136-145) Potassium Level 3.5 mmol/L (3.5-5.1) Chloride Level 105 mmol/L (98-107) Carbon Dioxide Level 28 mmol/L (21-32) Anion Gap 8 (6-14) Blood Urea Nitrogen 13 mg/dL (8-26) Creatinine 1.0 mg/dL (0.7-1.3) Estimated GFR (Cockcroft-Gault) 72.1 Glucose Level 96 mg/dL (70-99) Calcium Level 8.6 mg/dL (8.5-10.1) Microbiology 02/28/17 Blood Culture - Preliminary, Resulted NO GROWTH AFTER 1 DAY Medications Current Medications Nicardipine HCl 50 mg/Sodium Chloride 270 ml @ 0 mls/hr CONT PRN IV SEE I/O RECORD Last administered on 02/28/17 08:25; Start 02/28/17 at 08:15; Stop at 11:36; Status DC Acetaminophen (Tylenol) 650 mg 1X ONCE PO Last administered on 02/28/17 08: 30; Start 02/28/17 at 08:30; Stop 02/28/17 at 08:31; Status DC Sodium Chloride 1,000 ml @ 100 mls/hr Q10H IV Last administered on 02/28/17 09:52; Start 02/28/17 at 09:30; Stop 02/28/17 at 14:37; Status DC Simvastatin (Zocor) 10 mg QHS PO ; Start 02/28/17 at 21:00; Stop 02/28/17 at 21:00; Status DC Acetaminophen (Tylenol) 650 mg PRN Q6HRS PRN PO TEMP > 100.4F; Start 02/28/17 at 09:00 Acetaminophen (Acetaminophen Supp) 650 mg PRN Q4HRS PRN DE TEMP > 100.4F; Start 02/28/17 at 09:00; Stop 02/28/17 at 14:37; Status DC Aspirin (Children'S Aspirin) 81 mg DAILYWBKFT PO Last administered on 07:51; Start 02/28/17 at 09:30 Acetaminophen (Tylenol) 650 mg PRN Q6HRS PRN PO FEVER; Start 02/28/17 at 14:45 ; Stop 03/01/17 at 07:59; Status DC Ondansetron HCl (Zofran) 4 mg PRN Q6HRS PRN IV NAUSEA/VOMITING; Start at 14:45 Morphine Sulfate 2 mg PRN Q2HR PRN IV PAIN; Start 02/28/17 at 14:45 Tramadol HCl (Ultram) 50 mg PRN Q6HRS PRN PO PAIN; Start 02/28/17 at 14:45 Hydralazine HCl (Apresoline Inj) 10 mg PRN Q4HRS PRN IVP ELEVATED BP, SEE COMMENTS Last administered on 02/28/17 18:30; Start 02/28/17 at 14:45 Docusate Sodium (Colace) 100 mg PRN DAILY PRN PO CONSTIPATION; Start 02/28/17 at 14:45 Atorvastatin Calcium (Lipitor) 40 mg QHS PO Last administered on 02/28/17 20: 45; Start 02/28/17 at 21:00 Enoxaparin Sodium (Lovenox 40mg Syringe) 40 mg Q24H SQ Last administered on 14:53; Start 02/28/17 at 15:00 Lisinopril (Prinivil) 40 mg DAILY PO ; Start 02/28/17 at 15:00; Stop 02/28/17 at 15:25; Status DC Atenolol (Tenormin) 25 mg DAILY PO Last administered on 03/01/17 07:51; Start 03/01/17 at 09:00 Clopidogrel Bisulfate (Plavix) 75 mg DAILYWBKFT PO Last administered on 08:04; Start 03/01/17 at 08:00 Active Scripts Active Reported Atenolol 25 Mg Tablet 1 Tab PO DAILY Vitals/I & O Vital Sign - Last 24 Hours 02/28/17 02/28/17 02/28/17 02/28/17 18:30 19:00 20:12 22:03 Temp 98.1 97.7 98.1 97.7 Pulse 69 96 70 Resp 18 18 B/P (MAP) 190/84 147/87 (107) 161/79 (106) Pulse Ox 95 96 O2 Delivery Room Air Room Air Room Air 03/01/17 03/01/17 03/01/17 03/01/17 02:53 07:00 07:51 08:01 Temp 98.0 97.6 98.0 97.6 Pulse 76 63 65 Resp 16 18 B/P (MAP) 166/85 (112) 185/86 (119) 185/86 Pulse Ox 97 97 O2 Delivery Room Air Room Air Room Air 03/01/17 03/01/17 03/01/17 09:28 11:00 14:45 Temp 97.7 97.5 97.7 97.5 Pulse 60 62 63 Resp 18 17 B/P (MAP) 161/90 (113) 174/96 (122) 166/84 (111) Pulse Ox 97 97 O2 Delivery Room Air Room Air Intake and Output 03/01/17 03/01/17 03/02/17 15:00 23:00 07:00 Output Total 125 ml Balance -125 ml UZMA PRIETO MD Mar 01, 2017 15:36
--- NOTE | 2017-03-01 20:18 | CONS ---
DATE OF CONSULTATION: 03/01/2017 REASON FOR CONSULTATION: Symptomatic right carotid stenosis. HISTORY OF PRESENT ILLNESS: This is a 81-year-old male who awoke yesterday morning with some numbness and tingling with use of the left arm, a little numbness on the left side of his face and weakness there too. He states he has had some numbness in his left hand fingers for several weeks, but it got worse last night. He had a carotid Doppler that showed bilateral severe carotid stenosis greater than 70% bilaterally with a peak systolic velocity of 370 on the right side, which would put that about 80-90%. An MRI suggested a small area of an increased diffusion image in the frontal lobe on the right side suggestive of a small subacute infarct. Presently, he is asymptomatic. PAST MEDICAL HISTORY: He does have hypertension. He was very hypertensive in the Emergency Room. He also has hyperlipidemia. SOCIAL HISTORY: He uses tobacco and smokes. He is not a diabetic. REVIEW OF SYSTEMS: Negative for claudication. Negative for coronary artery disease. ALLERGIES: He has no drug allergies. MEDICATIONS: He states he does take aspirin daily. He also is on simvastatin. PHYSICAL EXAMINATION: GENERAL: Pleasant male, alert, in no acute distress. NECK: 2+ carotids, 2+ radial pulses. CARDIOVASCULAR: Rate is regular, nonlabored respirations. ABDOMEN: Soft. No pulsatile masses. EXTREMITIES: Strong popliteal pulses easily palpable. NEUROLOGIC: He appears to be neurologically intact at the present time. IMPRESSION: Symptomatic right carotid stenosis, probably greater than 80%, severe left carotid stenosis greater than 70% asymptomatic. Right hemispheric small stroke with a good recovery. PLAN: Recommend a right carotid endarterectomy under cervical block anesthetic. The nature of that procedure and the risk of bleeding, stroke, nerve injury, recurrent disease and infection were explained to the patient. He agrees to proceed. I recommended that he have the operation early next week with one of partners as I am out of town for a week, but he would prefer to wait and have me do the surgery when I get back, so I will tentatively schedule him for 03/11/2017. Okay to discharge. We will add Plavix and gave him a prescription for Plavix 75 mg daily and we will start that here in the hospital, before he goes hopefully that will protect him, but if he does develop recurrent symptoms, any time between now and 03/11/2017, he should come in back in the hospital for urgent right carotid surgery. Thanks for allowing us to see him. GERA CONTE MD DR: GUILHERME/duc JOB#: [id number] / [id number]
[2017-03-01] MEDS: ATORVASTATIN CALCIUM 40 MG TABLET. PO SCH (21:25)
[2017-03-02] VITALS (7 sets, daily range): BP systolic 158–199; BP diastolic 71–90
[2017-03-02 05:40] LABS: BASO # 0.1 x10^3/uL (0.0-0.2); BASO % 1 % (0-3); EOS % 2 % (0-3); HEMATOCRIT 41.2 % (39.0-53.0); HEMOGLOBIN 13.9 g/dL (13.0-17.5); LYMPH # 2.2 x10^3/uL (1.0-4.8); LYMPH % 29 % (24-48); MEAN CORPUSCULAR HEMOGLOBIN 30 pg (25-35); MEAN CORPUSCULAR HGB CONC 34 g/dL (31-37); MEAN CORPUSCULAR VOLUME 89 fL (79-100); MONO % 9 % (0-9); NEUT % 59 % (31-73); PLATELET COUNT 161 x10^3/uL (140-400); RED BLOOD COUNT 4.65 x10^6/uL (4.30-5.70); RED CELL DISTRIBUTION WIDTH 13.8 % (11.5-14.5); WHITE BLOOD COUNT 7.6 x10^3/uL (4.0-11.0)
[2017-03-02 06:10] LABS: CALCIUM 8.6 mg/dL (8.5-10.1); GFR 72.1; POTASSIUM 3.7 mmol/L (3.5-5.1)
[2017-03-02] MEDS: ASPIRIN CHEWABLE 81 MG TABLET. PO SCH (08:22)
[2017-03-02] MEDS: ATENOLOL 25 MG TABLET. PO SCH (08:23)
[2017-03-02] MEDS: CLOPIDOGREL BISULFATE 75 MG TABLET PO SCH (08:24)
[2017-03-02] MEDS ORDERED: NICOTINE 14MG PATCH. TD PRN (12:15)
[2017-03-02] MEDS: ENOXAPARIN 40 MG/0.4 ML SYRINGE. SQ SCH (14:09)
--- NOTE | 2017-03-02 14:53 | PDOC ---
PROGRESS NOTES Chief Complaint Chief Complaint Right frontal and parietal lob small subacute stroke HTN urgency Hld bl carotid internal A >70% stenosis HTN TIA History of Present Illness History of Present Illness Pt seen at bedside on cardiovascular floor. Is AOCx3 in NAD. Pt and the family were educated on the plan and care. CEA will occur tomorrow. Nicotine patch and 0.25 mg xanax were ordered because the pt. was a little anxious, per RN. Will continue to monitor. Vitals Vitals Vital Signs Date Time Temp Pulse Resp B/P (MAP) Pulse Ox O2 Delivery O2 Flow Rate FiO2 03/02/17 10:50 97.5 58 17 168/84 (112) 98 Room Air 97.5 Physical Exam General: Alert, Oriented X3, Cooperative, No acute distress Heart: Regular rate, Normal S1, Normal S2 Lungs: Clear Abdomen: Normal bowel sounds, Soft, No tenderness Extremities: No clubbing, No cyanosis, No edema, Normal pulses Skin: No rashes, No breakdown, No significant lesion Labs LABS Laboratory Tests Test 03/02/17 05:10 White Blood Count 7.6 x10^3/uL (4.0-11.0) Red Blood Count 4.65 x10^6/uL (4.30-5.70) Hemoglobin 13.9 g/dL (13.0-17.5) Hematocrit 41.2 % (39.0-53.0) Mean Corpuscular Volume 89 fL (79-100) Mean Corpuscular Hemoglobin 30 pg (25-35) Mean Corpuscular Hemoglobin Concent 34 g/dL (31-37) Red Cell Distribution Width 13.8 % (11.5-14.5) Platelet Count 161 x10^3/uL (140-400) Neutrophils (%) (Auto) 59 % (31-73) Lymphocytes (%) (Auto) 29 % (24-48) Monocytes (%) (Auto) 9 % (0-9) Eosinophils (%) (Auto) 2 % (0-3) Basophils (%) (Auto) 1 % (0-3) Neutrophils # (Auto) 4.5 x10^3uL (1.8-7.7) Lymphocytes # (Auto) 2.2 x10^3/uL (1.0-4.8) Monocytes # (Auto) 0.7 x10^3/uL (0.0-1.1) Eosinophils # (Auto) 0.2 x10^3/uL (0.0-0.7) Basophils # (Auto) 0.1 x10^3/uL (0.0-0.2) Sodium Level 141 mmol/L (136-145) Potassium Level 3.7 mmol/L (3.5-5.1) Chloride Level 106 mmol/L (98-107) Carbon Dioxide Level 28 mmol/L (21-32) Anion Gap 7 (6-14) Blood Urea Nitrogen 21 mg/dL (8-26) Creatinine 1.0 mg/dL (0.7-1.3) Estimated GFR (Cockcroft-Gault) 72.1 Glucose Level 85 mg/dL (70-99) Calcium Level 8.6 mg/dL (8.5-10.1) Review of Systems Review of Systems fatigue and weakness Assessment and Plan Assessmemt and Plan Problems Medical Problems: (1) TIA (transient ischemic attack) Status: Acute Assessment: Right frontal and parietal lob small subacute stroke HTN urgency Hld bl carotid internal A >70% stenosis HTN TIA Plan: Awaiting CEA surgery tomorrow Nicotine patch 0.25 mg xanax for anxiety Recheck labs PT/OT Continue home meds Problems: Comment Review of Relevant I have reviewed the following items michelle (where applicable) has been applied. Labs Laboratory Tests Test 03/01/17 05:00 03/02/17 05:10 White Blood Count 8.5 x10^3/uL (4.0-11.0) 7.6 x10^3/uL (4.0-11.0) Red Blood Count 4.84 x10^6/uL (4.30-5.70) 4.65 x10^6/uL (4.30-5.70) Hemoglobin 14.4 g/dL (13.0-17.5) 13.9 g/dL (13.0-17.5) Hematocrit 42.6 % (39.0-53.0) 41.2 % (39.0-53.0) Mean Corpuscular Volume 88 fL (79-100) 89 fL (79-100) Mean Corpuscular Hemoglobin 30 pg (25-35) 30 pg (25-35) Mean Corpuscular Hemoglobin Concent 34 g/dL (31-37) 34 g/dL (31-37) Red Cell Distribution Width 13.9 % (11.5-14.5) 13.8 % (11.5-14.5) Platelet Count 170 x10^3/uL (140-400) 161 x10^3/uL (140-400) Neutrophils (%) (Auto) 66 % (31-73) 59 % (31-73) Lymphocytes (%) (Auto) 22 % (24-48) 29 % (24-48) Monocytes (%) (Auto) 10 % (0-9) 9 % (0-9) Eosinophils (%) (Auto) 2 % (0-3) 2 % (0-3) Basophils (%) (Auto) 1 % (0-3) 1 % (0-3) Neutrophils # (Auto) 5.6 x10^3uL (1.8-7.7) 4.5 x10^3uL (1.8-7.7) Lymphocytes # (Auto) 1.9 x10^3/uL (1.0-4.8) 2.2 x10^3/uL (1.0-4.8) Monocytes # (Auto) 0.8 x10^3/uL (0.0-1.1) 0.7 x10^3/uL (0.0-1.1) Eosinophils # (Auto) 0.1 x10^3/uL (0.0-0.7) 0.2 x10^3/uL (0.0-0.7) Basophils # (Auto) 0.1 x10^3/uL (0.0-0.2) 0.1 x10^3/uL (0.0-0.2) Sodium Level 141 mmol/L (136-145) 141 mmol/L (136-145) Potassium Level 3.5 mmol/L (3.5-5.1) 3.7 mmol/L (3.5-5.1) Chloride Level 105 mmol/L (98-107) 106 mmol/L (98-107) Carbon Dioxide Level 28 mmol/L (21-32) 28 mmol/L (21-32) Anion Gap 8 (6-14) 7 (6-14) Blood Urea Nitrogen 13 mg/dL (8-26) 21 mg/dL (8-26) Creatinine 1.0 mg/dL (0.7-1.3) 1.0 mg/dL (0.7-1.3) Estimated GFR (Cockcroft-Gault) 72.1 72.1 Glucose Level 96 mg/dL (70-99) 85 mg/dL (70-99) Calcium Level 8.6 mg/dL (8.5-10.1) 8.6 mg/dL (8.5-10.1) Laboratory Tests Test 03/02/17 05:10 White Blood Count 7.6 x10^3/uL (4.0-11.0) Red Blood Count 4.65 x10^6/uL (4.30-5.70) Hemoglobin 13.9 g/dL (13.0-17.5) Hematocrit 41.2 % (39.0-53.0) Mean Corpuscular Volume 89 fL (79-100) Mean Corpuscular Hemoglobin 30 pg (25-35) Mean Corpuscular Hemoglobin Concent 34 g/dL (31-37) Red Cell Distribution Width 13.8 % (11.5-14.5) Platelet Count 161 x10^3/uL (140-400) Neutrophils (%) (Auto) 59 % (31-73) Lymphocytes (%) (Auto) 29 % (24-48) Monocytes (%) (Auto) 9 % (0-9) Eosinophils (%) (Auto) 2 % (0-3) Basophils (%) (Auto) 1 % (0-3) Neutrophils # (Auto) 4.5 x10^3uL (1.8-7.7) Lymphocytes # (Auto) 2.2 x10^3/uL (1.0-4.8) Monocytes # (Auto) 0.7 x10^3/uL (0.0-1.1) Eosinophils # (Auto) 0.2 x10^3/uL (0.0-0.7) Basophils # (Auto) 0.1 x10^3/uL (0.0-0.2) Sodium Level 141 mmol/L (136-145) Potassium Level 3.7 mmol/L (3.5-5.1) Chloride Level 106 mmol/L (98-107) Carbon Dioxide Level 28 mmol/L (21-32) Anion Gap 7 (6-14) Blood Urea Nitrogen 21 mg/dL (8-26) Creatinine 1.0 mg/dL (0.7-1.3) Estimated GFR (Cockcroft-Gault) 72.1 Glucose Level 85 mg/dL (70-99) Calcium Level 8.6 mg/dL (8.5-10.1) Microbiology 02/28/17 Blood Culture - Preliminary, Resulted NO GROWTH AFTER 2 DAYS Medications Current Medications Nicardipine HCl 50 mg/Sodium Chloride 270 ml @ 0 mls/hr CONT PRN IV SEE I/O RECORD Last administered on 02/28/17 08:25; Start 02/28/17 at 08:15; Stop at 11:36; Status DC Acetaminophen (Tylenol) 650 mg 1X ONCE PO Last administered on 02/28/17 08: 30; Start 02/28/17 at 08:30; Stop 02/28/17 at 08:31; Status DC Sodium Chloride 1,000 ml @ 100 mls/hr Q10H IV Last administered on 02/28/17 09:52; Start 02/28/17 at 09:30; Stop 02/28/17 at 14:37; Status DC Simvastatin (Zocor) 10 mg QHS PO ; Start 02/28/17 at 21:00; Stop 02/28/17 at 21:00; Status DC Acetaminophen (Tylenol) 650 mg PRN Q6HRS PRN PO TEMP > 100.4F; Start 02/28/17 at 09:00 Acetaminophen (Acetaminophen Supp) 650 mg PRN Q4HRS PRN IN TEMP > 100.4F; Start 02/28/17 at 09:00; Stop 02/28/17 at 14:37; Status DC Aspirin (Children'S Aspirin) 81 mg DAILYWBKFT PO Last administered on 08:22; Start 02/28/17 at 09:30 Acetaminophen (Tylenol) 650 mg PRN Q6HRS PRN PO FEVER; Start 02/28/17 at 14:45 ; Stop 03/01/17 at 07:59; Status DC Ondansetron HCl (Zofran) 4 mg PRN Q6HRS PRN IV NAUSEA/VOMITING; Start at 14:45 Morphine Sulfate 2 mg PRN Q2HR PRN IV PAIN; Start 02/28/17 at 14:45 Tramadol HCl (Ultram) 50 mg PRN Q6HRS PRN PO PAIN; Start 02/28/17 at 14:45 Hydralazine HCl (Apresoline Inj) 10 mg PRN Q4HRS PRN IVP ELEVATED BP, SEE COMMENTS Last administered on 02/28/17 18:30; Start 02/28/17 at 14:45 Docusate Sodium (Colace) 100 mg PRN DAILY PRN PO CONSTIPATION; Start 02/28/17 at 14:45 Atorvastatin Calcium (Lipitor) 40 mg QHS PO Last administered on 03/01/17 21: 25; Start 02/28/17 at 21:00 Enoxaparin Sodium (Lovenox 40mg Syringe) 40 mg Q24H SQ Last administered on 14:09; Start 02/28/17 at 15:00 Lisinopril (Prinivil) 40 mg DAILY PO ; Start 02/28/17 at 15:00; Stop 02/28/17 at 15:25; Status DC Atenolol (Tenormin) 25 mg DAILY PO Last administered on 03/02/17 08:23; Start 03/01/17 at 09:00 Clopidogrel Bisulfate (Plavix) 75 mg DAILYWBKFT PO Last administered on 08:24; Start 03/01/17 at 08:00 Nicotine (Nicoderm Cq 14mg) 1 patch PRN DAILY PRN TD SMOKING CESSATION Last administered on 03/02/17 14:08; Start 03/02/17 at 12:15 Alprazolam (Xanax) 0.25 mg PRN Q8HRS PRN PO ANXIETY / AGITATION; Start at 12:15 Active Scripts Active Reported Atenolol 25 Mg Tablet 1 Tab PO DAILY Vitals/I & O Vital Sign - Last 24 Hours 03/01/17 03/01/17 03/01/17 03/02/17 19:30 19:58 22:29 03:15 Temp 97.9 97.7 98.0 97.9 97.7 98.0 Pulse 61 63 65 Resp 17 18 20 B/P (MAP) 168/83 (111) 152/83 (106) 158/82 (107) Pulse Ox 97 95 95 O2 Delivery Room Air Room Air Room Air Room Air 03/02/17 03/02/17 03/02/17 03/02/17 07:00 07:55 08:23 10:50 Temp 97.6 97.5 97.6 97.5 Pulse 66 78 58 Resp 17 17 B/P (MAP) 188/90 (122) 188/90 168/84 (112) Pulse Ox 97 98 O2 Delivery Room Air Room Air Room Air CHAD GLASER III DO Mar 02, 2017 14:53
--- NOTE | 2017-03-02 16:42 | PDOC ---
SURGICAL PROGRESS NOTE Subjective pt without complaints. no new neurologic events Vital Signs Vital Signs Date Time Temp Pulse Resp B/P (MAP) Pulse Ox O2 Delivery O2 Flow Rate FiO2 03/02/17 10:50 97.5 58 17 168/84 (112) 98 Room Air 97.5 Neuro: Normal gait, Normal speech, Strength at 5/5 X4 ext, Normal tone, Sensation intact, Reflexes 2+ Labs Laboratory Tests Test 03/01/17 05:00 03/02/17 05:10 White Blood Count 8.5 x10^3/uL (4.0-11.0) 7.6 x10^3/uL (4.0-11.0) Red Blood Count 4.84 x10^6/uL (4.30-5.70) 4.65 x10^6/uL (4.30-5.70) Hemoglobin 14.4 g/dL (13.0-17.5) 13.9 g/dL (13.0-17.5) Hematocrit 42.6 % (39.0-53.0) 41.2 % (39.0-53.0) Mean Corpuscular Volume 88 fL (79-100) 89 fL (79-100) Mean Corpuscular Hemoglobin 30 pg (25-35) 30 pg (25-35) Mean Corpuscular Hemoglobin Concent 34 g/dL (31-37) 34 g/dL (31-37) Red Cell Distribution Width 13.9 % (11.5-14.5) 13.8 % (11.5-14.5) Platelet Count 170 x10^3/uL (140-400) 161 x10^3/uL (140-400) Neutrophils (%) (Auto) 66 % (31-73) 59 % (31-73) Lymphocytes (%) (Auto) 22 % (24-48) 29 % (24-48) Monocytes (%) (Auto) 10 % (0-9) 9 % (0-9) Eosinophils (%) (Auto) 2 % (0-3) 2 % (0-3) Basophils (%) (Auto) 1 % (0-3) 1 % (0-3) Neutrophils # (Auto) 5.6 x10^3uL (1.8-7.7) 4.5 x10^3uL (1.8-7.7) Lymphocytes # (Auto) 1.9 x10^3/uL (1.0-4.8) 2.2 x10^3/uL (1.0-4.8) Monocytes # (Auto) 0.8 x10^3/uL (0.0-1.1) 0.7 x10^3/uL (0.0-1.1) Eosinophils # (Auto) 0.1 x10^3/uL (0.0-0.7) 0.2 x10^3/uL (0.0-0.7) Basophils # (Auto) 0.1 x10^3/uL (0.0-0.2) 0.1 x10^3/uL (0.0-0.2) Sodium Level 141 mmol/L (136-145) 141 mmol/L (136-145) Potassium Level 3.5 mmol/L (3.5-5.1) 3.7 mmol/L (3.5-5.1) Chloride Level 105 mmol/L (98-107) 106 mmol/L (98-107) Carbon Dioxide Level 28 mmol/L (21-32) 28 mmol/L (21-32) Anion Gap 8 (6-14) 7 (6-14) Blood Urea Nitrogen 13 mg/dL (8-26) 21 mg/dL (8-26) Creatinine 1.0 mg/dL (0.7-1.3) 1.0 mg/dL (0.7-1.3) Estimated GFR (Cockcroft-Gault) 72.1 72.1 Glucose Level 96 mg/dL (70-99) 85 mg/dL (70-99) Calcium Level 8.6 mg/dL (8.5-10.1) 8.6 mg/dL (8.5-10.1) Laboratory Tests Test 03/02/17 05:10 White Blood Count 7.6 x10^3/uL (4.0-11.0) Red Blood Count 4.65 x10^6/uL (4.30-5.70) Hemoglobin 13.9 g/dL (13.0-17.5) Hematocrit 41.2 % (39.0-53.0) Mean Corpuscular Volume 89 fL (79-100) Mean Corpuscular Hemoglobin 30 pg (25-35) Mean Corpuscular Hemoglobin Concent 34 g/dL (31-37) Red Cell Distribution Width 13.8 % (11.5-14.5) Platelet Count 161 x10^3/uL (140-400) Neutrophils (%) (Auto) 59 % (31-73) Lymphocytes (%) (Auto) 29 % (24-48) Monocytes (%) (Auto) 9 % (0-9) Eosinophils (%) (Auto) 2 % (0-3) Basophils (%) (Auto) 1 % (0-3) Neutrophils # (Auto) 4.5 x10^3uL (1.8-7.7) Lymphocytes # (Auto) 2.2 x10^3/uL (1.0-4.8) Monocytes # (Auto) 0.7 x10^3/uL (0.0-1.1) Eosinophils # (Auto) 0.2 x10^3/uL (0.0-0.7) Basophils # (Auto) 0.1 x10^3/uL (0.0-0.2) Sodium Level 141 mmol/L (136-145) Potassium Level 3.7 mmol/L (3.5-5.1) Chloride Level 106 mmol/L (98-107) Carbon Dioxide Level 28 mmol/L (21-32) Anion Gap 7 (6-14) Blood Urea Nitrogen 21 mg/dL (8-26) Creatinine 1.0 mg/dL (0.7-1.3) Estimated GFR (Cockcroft-Gault) 72.1 Glucose Level 85 mg/dL (70-99) Calcium Level 8.6 mg/dL (8.5-10.1) Problem List Problems Medical Problems: (1) TIA (transient ischemic attack) Status: Acute Assessment/Plan 1. right CHANDA, symptomatic, small stroke with no apparent deficit Plan: right carotid endarterectomy tomorrow. Operation, risks and benefits explained. Problems: FARHANA MATHUR II, MD Mar 02, 2017 16:42
[2017-03-02] MEDS: ALPRAZolam 0.25 MG TABLET PO PRN (18:07)
[2017-03-02] MEDS: hydrALAZINE 20 MG/ML VIAL. IVP PRN (19:39)
[2017-03-02] MEDS: ATORVASTATIN CALCIUM 40 MG TABLET. PO SCH (20:37)
[2017-03-02] MEDS: LABETALOL 20 MG/4 ML DISP.SYRIN. IVP PRN (23:47)
[2017-03-03] VITALS (12 sets, daily range): BP systolic 111–187; BP diastolic 54–86
[2017-03-03] MEDS: LABETALOL 20 MG/4 ML DISP.SYRIN. IVP PRN (02:35)
[2017-03-03] MEDS ORDERED: IV RINGERS,LACTATED 1000ML 1,000 ML IV SCH (08:03)
[2017-03-03] MEDS ORDERED: ONDANSETRON PF 4 MG/2 ML VIAL. IV PRN (08:15)
[2017-03-03] MEDS ORDERED: fentaNYL PF VIAL 100 MCG/2 ML VIAL IV PRN ×2 (08:15)
[2017-03-03] MEDS ORDERED: HYDROmorphone 2 MG/ML VIAL IV PRN (08:15)
[2017-03-03] MEDS ORDERED: PROCHLORPERAZINE 10 MG/2 ML VIAL. IV PRN (08:15)
[2017-03-03] MEDS ORDERED: LIDOCAINE 1% PF 2 ML VIAL. ID PRN (08:15)
[2017-03-03] MEDS ORDERED: MORPHINE SULFATE 4 MG/ML DISP.SYRIN. IV PRN (08:15)
[2017-03-03] MEDS: ATENOLOL 25 MG TABLET. PO SCH (08:43)
[2017-03-03] MEDS: ASPIRIN CHEWABLE 81 MG TABLET. PO SCH (08:43)
[2017-03-03] MEDS: CLOPIDOGREL BISULFATE 75 MG TABLET PO SCH (08:44)
[2017-03-03 09:40] LABS: BASO % 1 % (0-3); EOS % 2 % (0-3); HEMATOCRIT 44.1 % (39.0-53.0); HEMOGLOBIN 14.7 g/dL (13.0-17.5); LYMPH # 1.5 x10^3/uL (1.0-4.8); LYMPH % 23 % (24-48); MEAN CORPUSCULAR HEMOGLOBIN 29 pg (25-35); MEAN CORPUSCULAR HGB CONC 33 g/dL (31-37); MEAN CORPUSCULAR VOLUME 88 fL (79-100); MONO % 10 % (0-9); NEUT % 65 % (31-73); PLATELET COUNT 188 x10^3/uL (140-400); RED BLOOD COUNT 5.03 x10^6/uL (4.30-5.70); RED CELL DISTRIBUTION WIDTH 13.7 % (11.5-14.5); WHITE BLOOD COUNT 6.9 x10^3/uL (4.0-11.0)
[2017-03-03 09:52] LABS: CALCIUM 9.3 mg/dL (8.5-10.1); GFR 72.1
--- NOTE | 2017-03-03 13:05 | CARD ---
APPROVED REPORT EXAM: Two-dimensional and M-mode echocardiogram with Doppler and color Doppler. Other Information Quality : Good INDICATION CVA/TIA 2D DIMENSIONS RVDd3.0 (2.9-3.5cm)Left Atrium(2D)4.5 (1.6-4.0cm) IVSd1.2 (0.7-1.1cm)Aortic Root(2D)3.4 (2.0-3.7cm) LVDd5.0 (3.9-5.9cm)LVOT Diameter2.0 (1.8-2.4cm) PWd1.2 (0.7-1.1cm)LVDs2.0 (2.5-4.0cm) FS (%) 30.0 %SV105.5 ml LVEF(%)60.0 (>50%) Aortic Valve AoV Peak Paco.117.3cm/sAoV VTI24.3cm AO Peak GR.5.5mmHgLVOT VTI 21.60cm AO Mean GR.3mmHgAVA (VTI)2.76cm2 Mitral Valve MV E Krmgogpj04.8cm/sMV DECEL [id number] MV A Lenzoyxz944.7cm/sE/A Ratio0.7 TDI Lateral E' P. V5.80cm/sMedial E' P. V3.99cm/s E/Lateral E'13.9E/Medial E'20.3 Tricuspid Valve TR P. Hldckvya160nk/sRAP ECYWDYNB9lcDe TR Peak Gr.76lmAdBPVO67zyRw LEFT VENTRICLE The left ventricle is normal size. There is mild concentric left ventricular hypertrophy. The left ve ntricular systolic function is normal and the ejection fraction is within normal range. The Ejection Fraction is 55-60%. There is normal LV segmental wall motion. Transmitral Doppler flow pattern is Gra de I-abnormal relaxation pattern. RIGHT VENTRICLE The right ventricle is normal size. The right ventricular systolic function is normal. ATRIA The left atrium is mildly dilated. The right atrium size is normal. The interatrial septum is intact with no evidence for an atrial septal defect or patent foramen ovale as noted on 2-D or Doppler imagi ng. AORTIC VALVE The aortic valve is calcified but opens well. Doppler and Color Flow revealed mild aortic regurgitati on. There is no significant aortic valvular stenosis. MITRAL VALVE The mitral valve is calcified but opens well. There is no evidence of mitral valve prolapse. There is no mitral valve stenosis. Doppler and Color-flow revealed trace to mild mitral regurgitation. TRICUSPID VALVE The tricuspid valve is normal in structure and function. Doppler and Color Flow revealed physiologica l tricuspid regurgitation. The PA pressure was estimated at 30 mmHg. There is no tricuspid valve sten osis. PULMONIC VALVE Doppler and Color Flow revealed no pulmonic valvular regurgitation. There is no pulmonic valvular cornel nosis. GREAT VESSELS The aortic root is normal in size. The ascending aorta is mildly dilated at 3.7 cm. The IVC was not v isualized. PERICARDIAL EFFUSION There is no evidence of significant pericardial effusion. Critical Notification Critical Value: No <Conclusion> The left ventricular systolic function is normal and the ejection fraction is within normal range. T he Ejection Fraction is 55-60%. There is normal LV segmental wall motion. The ascending aorta is mildly dilated at 3.7 cm.
[2017-03-03] MEDS ORDERED: LIDOCAINE 1% 20 ML VIAL. ONE (13:44)
[2017-03-03] MEDS ORDERED: PROTAMINE 50 MG/5 ML VIAL. IV ONE (13:44)
[2017-03-03] MEDS ORDERED: SURGICEL FIBRILLAR 1X2 EACH. ONE (13:44)
[2017-03-03] MEDS: hydrALAZINE 20 MG/ML VIAL. IVP PRN (13:53)
[2017-03-03] MEDS ORDERED: HEPARIN SODIUM 5,000 UNIT in IV RINGERS,LACTATED 500ML 500 ML IRR ONE (14:00)
[2017-03-03] MEDS ORDERED: amLODIPine BESYLATE 5 MG TABLET PO ONE (14:15)
[2017-03-03] MEDS ORDERED: MIDAZOLAM HCL/PF 2 MG/2 ML VIAL. ONE ×2 (14:24→16:59)
[2017-03-03] MEDS ORDERED: ROPIVacaine 0.5% PF 30 ML VIAL. ONE (14:24)
[2017-03-03] MEDS ORDERED: HEPARIN for IV BOLUS 10,000 UNIT/10 ML VIAL. ONE (14:43)
--- NOTE | 2017-03-03 14:56 | PDOC ---
PROGRESS NOTES Assessment Assessment IMPRESSION: Tiny right posterior frontal lobe i fract. Bilateral carotid A stenosis > 70%. HTN HLD Obesity. RECOMMENDATIONS/PLAN: Plavix 75 mg daily,'Lipitor 40 mg HS. Consulted vascular Surgery and endarterectomy planned. BP control. Discussed with his family at bedside. 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 Head: No traumatic brain or head injury. Skin: No edema, or rash. Ear: No infection. Eyes: No vision loss, or diplopia. Nose: No bleeding or purulent discharges. Hearing: No hearing decrease. Neck: No injury. Cardiac: HTN, HLD Pulmonary: No COPD.. GI: No GI Ulcer, GI bleeding Urinary/genital: UTI. Endocrine: No cousin face, craniofacial dysmorphism, polydactyly. Skeletomuscular: No muscular atrophy, deformity. Neurological: see HP. Psychiatric: Denies drug use/abuse. Otherwise, not [id number] review of systems. PHYSICAL EXAMINATION: General appearance in subacute distress. HEENT: Normocephalic and nontraumatic. Eyes, nose, ears, and throat are unremarkable. Neck is supple. No lymphadenopathy. N\No Crepitus. Cardiovascular: S1, S2, regular rate and rhythm. Pulmonary: Clear to auscultation bilaterally. Abdomen: Bowel sounds are positive. Extremities: No rash, lesions, or edema. No restriction of range of motion NEUROLOGICAL EXAMINATION: Alert. Oriented to time, place and person. PERRL. EOMI. CN: no focal findings. Muscle tone: within normal. Muscle strength: 5 DTR: 2 Plantar reflex: Flexor response bilaterally Gait: not examined in bed. Sensory exam: no abnormal findings. No cerebellar signs elicited. F-T-N test accurate. Objective Objective Vital Signs Date Time Temp Pulse Resp B/P (MAP) Pulse Ox O2 Delivery O2 Flow Rate FiO2 03/03/17 13:53 56 203/95 03/03/17 11:00 97.8 18 98 Room Air 97.8 Intake and Output 03/03/17 07:00 Intake Total 910 ml Output Total 450 ml Balance 460 ml Intake Oral 910 ml Output Urine Total 450 ml Vitals Signs Vitals VS - Last 72 Hours, by Label Date Time Temp Pulse Resp B/P (MAP) Pulse Ox O2 Delivery O2 Flow Rate FiO2 03/03/17 13:53 56 203/95 03/03/17 11:00 97.8 60 18 174/84 (114) 98 Room Air 97.8 03/03/17 08:45 Room Air 03/03/17 08:43 81 187/86 03/03/17 08:00 Room Air 03/03/17 07:00 97.7 67 18 187/86 (119) 95 Room Air 97.7 03/03/17 02:35 98.1 62 17 180/78 (112) 97 Room Air 98.1 03/03/17 02:35 63 180/78 03/02/17 23:47 72 177/76 03/02/17 23:03 98.0 68 16 177/76 (109) 98 Room Air 98.0 03/02/17 20:42 70 196/84 (121) 03/02/17 20:19 Room Air 03/02/17 19:39 64 199/71 03/02/17 19:14 97.5 64 16 199/71 (113) 99 Room Air 97.5 03/02/17 15:00 98.1 62 16 172/83 (112) 99 Room Air 98.1 03/02/17 10:50 97.5 58 17 168/84 (112) 98 Room Air 97.5 03/02/17 08:23 78 188/90 03/02/17 07:55 Room Air 03/02/17 07:00 97.6 66 17 188/90 (122) 97 Room Air 97.6 Laboratory Laboratory Laboratory Tests Test 03/03/17 08:55 White Blood Count 6.9 x10^3/uL (4.0-11.0) Red Blood Count 5.03 x10^6/uL (4.30-5.70) Hemoglobin 14.7 g/dL (13.0-17.5) Hematocrit 44.1 % (39.0-53.0) Mean Corpuscular Volume 88 fL (79-100) Mean Corpuscular Hemoglobin 29 pg (25-35) Mean Corpuscular Hemoglobin Concent 33 g/dL (31-37) Red Cell Distribution Width 13.7 % (11.5-14.5) Platelet Count 188 x10^3/uL (140-400) Neutrophils (%) (Auto) 65 % (31-73) Lymphocytes (%) (Auto) 23 % (24-48) Monocytes (%) (Auto) 10 % (0-9) Eosinophils (%) (Auto) 2 % (0-3) Basophils (%) (Auto) 1 % (0-3) Neutrophils # (Auto) 4.5 x10^3uL (1.8-7.7) Lymphocytes # (Auto) 1.5 x10^3/uL (1.0-4.8) Monocytes # (Auto) 0.7 x10^3/uL (0.0-1.1) Eosinophils # (Auto) 0.1 x10^3/uL (0.0-0.7) Basophils # (Auto) 0.0 x10^3/uL (0.0-0.2) Sodium Level 142 mmol/L (136-145) Potassium Level 4.0 mmol/L (3.5-5.1) Chloride Level 105 mmol/L (98-107) Carbon Dioxide Level 29 mmol/L (21-32) Anion Gap 8 (6-14) Blood Urea Nitrogen 18 mg/dL (8-26) Creatinine 1.0 mg/dL (0.7-1.3) Estimated GFR (Cockcroft-Gault) 72.1 Glucose Level 100 mg/dL (70-99) Calcium Level 9.3 mg/dL (8.5-10.1) Microbiology 02/28/17 Blood Culture - Preliminary, Resulted NO GROWTH AFTER 3 DAYS Medication Medications Current Medications Amlodipine Besylate (Norvasc) 5 mg 1X ONCE PO ; Start 03/03/17 at 14:15; Stop 03/03/17 at 14:16; Status DC Amlodipine Besylate (Norvasc) 5 mg DAILY PO ; Start 03/04/17 at 09:00 Cefazolin Sodium 50 ml @ 100 mls/hr 1X ONCE IV ; Start 03/03/17 at 07:45; Stop 03/03/17 at 08:14; Status DC Cefazolin Sodium 1 gm/Sodium Chloride 500 ml @ 500 mls/hr 1X PERIOP ONCE IRR ; Start 03/03/17 at 14:00; Stop 03/03/17 at 14:59 Cellulose 1 each STK-MED ONCE .ROUTE ; Start 03/03/17 at 13:44; Stop 03/03/17 at 13:45; Status DC Fentanyl Citrate (Fentanyl 2ml Vial) 25 mcg PRN Q5MIN PRN IV MILD PAIN; Start 03/03/17 at 08:15; Stop 03/04/17 at 08:14 Fentanyl Citrate (Fentanyl 2ml Vial) 50 mcg PRN Q5MIN PRN IV MODERATE PAIN; Start 03/03/17 at 08:15; Stop 03/04/17 at 08:14 Heparin Sodium (Porcine) (Heparin Sodium) 10,000 unit STK-MED ONCE .ROUTE ; Start 03/03/17 at 14:43; Stop 03/03/17 at 14:44; Status DC Heparin Sodium (Porcine) 5000 unit/Ringer's Solution 505 ml @ 505 mls/hr 1X PERIOP ONCE IRR ; Start 03/03/17 at 14:00; Stop 03/03/17 at 14:59 Hydromorphone HCl (Dilaudid) 0.5 mg PRN Q10MIN PRN IV SEV PAIN, Second choice; Start 03/03/17 at 08:15; Stop 03/04/17 at 08:14 Labetalol HCl (Normodyne) 10 mg PRN Q2HR PRN IVP HYPERTENSION, SEE COMMENTS Last administered on 03/03/17t 02:35; Start 03/02/17 at 21:15 Lidocaine HCl 20 ml STK-MED ONCE .ROUTE ; Start 03/03/17 at 13:44; Stop at 13:45; Status DC Lidocaine HCl (Xylocaine-Mpf 1% Vial) 2 ml 1X PRN PRN ID IV START; Start 03/03 at 08:15; Stop 03/04/17 at 08:14 Midazolam HCl (Versed) 2 mg STK-MED ONCE .ROUTE ; Start 03/03/17 at 14:24; Stop 03/03/17 at 14:25; Status DC Morphine Sulfate 1 mg PRN Q10MIN PRN IV SEVERE PAIN; Start 03/03/17 at 08:15; Stop 03/04/17 at 08:14 Nicardipine HCl (Cardene) 25 mg STK-MED ONCE IV ; Start 03/03/17 at 14:43; Stop 03/03/17 at 14:44; Status DC Ondansetron HCl (Zofran) 4 mg PRN Q6HRS PRN IV NAUSEA/VOMITING; Start at 08:15; Stop 03/04/17 at 08:14 Prochlorperazine Edisylate (Compazine) 5 mg PACU PRN PRN IV NAUSEA, MRX1; Start 03/03/17 at 08:15; Stop 03/04/17 at 08:14 Protamine Sulfate 50 mg STK-MED ONCE IV ; Start 03/03/17 at 13:44; Stop at 13:45; Status DC Ringer's Solution 1,000 ml @ 30 mls/hr Q24H IV ; Start 03/03/17 at 08:03; Stop 03/03/17 at 20:02 Ropivacaine (Naropin 0.5%) 30 ml STK-MED ONCE .ROUTE ; Start 03/03/17 at 14:24 ; Stop 03/03/17 at 14:25; Status DC Comment Review of Relevant I have reviewed the following items michelle (where applicable) has been applied. CAM MENDOSA MD Mar 03, 2017 14:56
[2017-03-03] MEDS: ENOXAPARIN 40 MG/0.4 ML SYRINGE. SQ SCH (15:00)
--- NOTE | 2017-03-03 15:48 | PDOC ---
PROGRESS NOTES Chief Complaint Chief Complaint Right frontal and parietal lob small subacute stroke HTN urgency Hld bl carotid internal A >70% stenosis HTN TIA History of Present Illness History of Present Illness feeling well . Is AOCx3 in NAD. Pt and the family were educated on the plan and care. CEA will occur tomorrow. Nicotine patch and 0.25 mg xanax prn Vitals Vitals Vital Signs Date Time Temp Pulse Resp B/P (MAP) Pulse Ox O2 Delivery O2 Flow Rate FiO2 03/03/17 15:01 98.1 71 20 161/78 97 Room Air 98.1 Physical Exam General: Alert, Oriented X3, Cooperative, No acute distress Heart: Regular rate, Normal S1, Normal S2 Lungs: Clear Abdomen: Normal bowel sounds, Soft, No tenderness Extremities: No clubbing, No cyanosis, No edema, Normal pulses Skin: No rashes, No breakdown, No significant lesion Labs LABS Laboratory Tests Test 03/03/17 08:55 White Blood Count 6.9 x10^3/uL (4.0-11.0) Red Blood Count 5.03 x10^6/uL (4.30-5.70) Hemoglobin 14.7 g/dL (13.0-17.5) Hematocrit 44.1 % (39.0-53.0) Mean Corpuscular Volume 88 fL (79-100) Mean Corpuscular Hemoglobin 29 pg (25-35) Mean Corpuscular Hemoglobin Concent 33 g/dL (31-37) Red Cell Distribution Width 13.7 % (11.5-14.5) Platelet Count 188 x10^3/uL (140-400) Neutrophils (%) (Auto) 65 % (31-73) Lymphocytes (%) (Auto) 23 % (24-48) Monocytes (%) (Auto) 10 % (0-9) Eosinophils (%) (Auto) 2 % (0-3) Basophils (%) (Auto) 1 % (0-3) Neutrophils # (Auto) 4.5 x10^3uL (1.8-7.7) Lymphocytes # (Auto) 1.5 x10^3/uL (1.0-4.8) Monocytes # (Auto) 0.7 x10^3/uL (0.0-1.1) Eosinophils # (Auto) 0.1 x10^3/uL (0.0-0.7) Basophils # (Auto) 0.0 x10^3/uL (0.0-0.2) Sodium Level 142 mmol/L (136-145) Potassium Level 4.0 mmol/L (3.5-5.1) Chloride Level 105 mmol/L (98-107) Carbon Dioxide Level 29 mmol/L (21-32) Anion Gap 8 (6-14) Blood Urea Nitrogen 18 mg/dL (8-26) Creatinine 1.0 mg/dL (0.7-1.3) Estimated GFR (Cockcroft-Gault) 72.1 Glucose Level 100 mg/dL (70-99) Calcium Level 9.3 mg/dL (8.5-10.1) Review of Systems Review of Systems no n,v.d. Assessment and Plan Assessmemt and Plan Problems Medical Problems: (1) TIA (transient ischemic attack) Status: Acute Problems: Comment Review of Relevant I have reviewed the following items michelle (where applicable) has been applied. Labs Laboratory Tests Test 03/02/17 05:10 03/03/17 08:55 White Blood Count 7.6 x10^3/uL (4.0-11.0) 6.9 x10^3/uL (4.0-11.0) Red Blood Count 4.65 x10^6/uL (4.30-5.70) 5.03 x10^6/uL (4.30-5.70) Hemoglobin 13.9 g/dL (13.0-17.5) 14.7 g/dL (13.0-17.5) Hematocrit 41.2 % (39.0-53.0) 44.1 % (39.0-53.0) Mean Corpuscular Volume 89 fL (79-100) 88 fL (79-100) Mean Corpuscular Hemoglobin 30 pg (25-35) 29 pg (25-35) Mean Corpuscular Hemoglobin Concent 34 g/dL (31-37) 33 g/dL (31-37) Red Cell Distribution Width 13.8 % (11.5-14.5) 13.7 % (11.5-14.5) Platelet Count 161 x10^3/uL (140-400) 188 x10^3/uL (140-400) Neutrophils (%) (Auto) 59 % (31-73) 65 % (31-73) Lymphocytes (%) (Auto) 29 % (24-48) 23 % (24-48) Monocytes (%) (Auto) 9 % (0-9) 10 % (0-9) Eosinophils (%) (Auto) 2 % (0-3) 2 % (0-3) Basophils (%) (Auto) 1 % (0-3) 1 % (0-3) Neutrophils # (Auto) 4.5 x10^3uL (1.8-7.7) 4.5 x10^3uL (1.8-7.7) Lymphocytes # (Auto) 2.2 x10^3/uL (1.0-4.8) 1.5 x10^3/uL (1.0-4.8) Monocytes # (Auto) 0.7 x10^3/uL (0.0-1.1) 0.7 x10^3/uL (0.0-1.1) Eosinophils # (Auto) 0.2 x10^3/uL (0.0-0.7) 0.1 x10^3/uL (0.0-0.7) Basophils # (Auto) 0.1 x10^3/uL (0.0-0.2) 0.0 x10^3/uL (0.0-0.2) Sodium Level 141 mmol/L (136-145) 142 mmol/L (136-145) Potassium Level 3.7 mmol/L (3.5-5.1) 4.0 mmol/L (3.5-5.1) Chloride Level 106 mmol/L (98-107) 105 mmol/L (98-107) Carbon Dioxide Level 28 mmol/L (21-32) 29 mmol/L (21-32) Anion Gap 7 (6-14) 8 (6-14) Blood Urea Nitrogen 21 mg/dL (8-26) 18 mg/dL (8-26) Creatinine 1.0 mg/dL (0.7-1.3) 1.0 mg/dL (0.7-1.3) Estimated GFR (Cockcroft-Gault) 72.1 72.1 Glucose Level 85 mg/dL (70-99) 100 mg/dL (70-99) Calcium Level 8.6 mg/dL (8.5-10.1) 9.3 mg/dL (8.5-10.1) Laboratory Tests Test 03/03/17 08:55 White Blood Count 6.9 x10^3/uL (4.0-11.0) Red Blood Count 5.03 x10^6/uL (4.30-5.70) Hemoglobin 14.7 g/dL (13.0-17.5) Hematocrit 44.1 % (39.0-53.0) Mean Corpuscular Volume 88 fL (79-100) Mean Corpuscular Hemoglobin 29 pg (25-35) Mean Corpuscular Hemoglobin Concent 33 g/dL (31-37) Red Cell Distribution Width 13.7 % (11.5-14.5) Platelet Count 188 x10^3/uL (140-400) Neutrophils (%) (Auto) 65 % (31-73) Lymphocytes (%) (Auto) 23 % (24-48) Monocytes (%) (Auto) 10 % (0-9) Eosinophils (%) (Auto) 2 % (0-3) Basophils (%) (Auto) 1 % (0-3) Neutrophils # (Auto) 4.5 x10^3uL (1.8-7.7) Lymphocytes # (Auto) 1.5 x10^3/uL (1.0-4.8) Monocytes # (Auto) 0.7 x10^3/uL (0.0-1.1) Eosinophils # (Auto) 0.1 x10^3/uL (0.0-0.7) Basophils # (Auto) 0.0 x10^3/uL (0.0-0.2) Sodium Level 142 mmol/L (136-145) Potassium Level 4.0 mmol/L (3.5-5.1) Chloride Level 105 mmol/L (98-107) Carbon Dioxide Level 29 mmol/L (21-32) Anion Gap 8 (6-14) Blood Urea Nitrogen 18 mg/dL (8-26) Creatinine 1.0 mg/dL (0.7-1.3) Estimated GFR (Cockcroft-Gault) 72.1 Glucose Level 100 mg/dL (70-99) Calcium Level 9.3 mg/dL (8.5-10.1) Microbiology 02/28/17 Blood Culture - Preliminary, Resulted NO GROWTH AFTER 3 DAYS Medications Current Medications Nicardipine HCl 50 mg/Sodium Chloride 270 ml @ 0 mls/hr CONT PRN IV SEE I/O RECORD Last administered on 02/28/17 08:25; Start 02/28/17 at 08:15; Stop at 11:36; Status DC Acetaminophen (Tylenol) 650 mg 1X ONCE PO Last administered on 02/28/17 08: 30; Start 02/28/17 at 08:30; Stop 02/28/17 at 08:31; Status DC Sodium Chloride 1,000 ml @ 100 mls/hr Q10H IV Last administered on 02/28/17 09:52; Start 02/28/17 at 09:30; Stop 02/28/17 at 14:37; Status DC Simvastatin (Zocor) 10 mg QHS PO ; Start 02/28/17 at 21:00; Stop 02/28/17 at 21:00; Status DC Acetaminophen (Tylenol) 650 mg PRN Q6HRS PRN PO TEMP > 100.4F; Start 02/28/17 at 09:00 Acetaminophen (Acetaminophen Supp) 650 mg PRN Q4HRS PRN MN TEMP > 100.4F; Start 02/28/17 at 09:00; Stop 02/28/17 at 14:37; Status DC Aspirin (Children'S Aspirin) 81 mg DAILYWBKFT PO Last administered on 08:43; Start 02/28/17 at 09:30 Acetaminophen (Tylenol) 650 mg PRN Q6HRS PRN PO FEVER; Start 02/28/17 at 14:45 ; Stop 03/01/17 at 07:59; Status DC Ondansetron HCl (Zofran) 4 mg PRN Q6HRS PRN IV NAUSEA/VOMITING; Start at 14:45 Morphine Sulfate 2 mg PRN Q2HR PRN IV PAIN; Start 02/28/17 at 14:45 Tramadol HCl (Ultram) 50 mg PRN Q6HRS PRN PO PAIN; Start 02/28/17 at 14:45 Hydralazine HCl (Apresoline Inj) 10 mg PRN Q4HRS PRN IVP ELEVATED BP, SEE COMMENTS Last administered on 03/03/17 13:53; Start 02/28/17 at 14:45 Docusate Sodium (Colace) 100 mg PRN DAILY PRN PO CONSTIPATION; Start 02/28/17 at 14:45 Atorvastatin Calcium (Lipitor) 40 mg QHS PO Last administered on 03/02/17 20: 37; Start 02/28/17 at 21:00 Enoxaparin Sodium (Lovenox 40mg Syringe) 40 mg Q24H SQ Last administered on 14:09; Start 02/28/17 at 15:00 Lisinopril (Prinivil) 40 mg DAILY PO ; Start 02/28/17 at 15:00; Stop 02/28/17 at 15:25; Status DC Atenolol (Tenormin) 25 mg DAILY PO Last administered on 03/03/17 08:43; Start 03/01/17 at 09:00 Clopidogrel Bisulfate (Plavix) 75 mg DAILYWBKFT PO Last administered on 08:44; Start 03/01/17 at 08:00 Nicotine (Nicoderm Cq 14mg) 1 patch PRN DAILY PRN TD SMOKING CESSATION Last administered on 03/02/17 14:08; Start 03/02/17 at 12:15 Alprazolam (Xanax) 0.25 mg PRN Q8HRS PRN PO ANXIETY / AGITATION Last administered on 03/02/17 18:07; Start 03/02/17 at 12:15 Labetalol HCl (Normodyne) 10 mg PRN Q2HR PRN IVP HYPERTENSION, SEE COMMENTS Last administered on 03/03/17 02:35; Start 03/02/17 at 21:15 Cefazolin Sodium 50 ml @ 100 mls/hr 1X ONCE IV ; Start 03/03/17 at 07:45; Stop 03/03/17 at 08:14; Status DC Ondansetron HCl (Zofran) 4 mg PRN Q6HRS PRN IV NAUSEA/VOMITING; Start at 08:15; Stop 03/04/17 at 08:14 Fentanyl Citrate (Fentanyl 2ml Vial) 25 mcg PRN Q5MIN PRN IV MILD PAIN; Start 03/03/17 at 08:15; Stop 03/04/17 at 08:14 Fentanyl Citrate (Fentanyl 2ml Vial) 50 mcg PRN Q5MIN PRN IV MODERATE PAIN; Start 03/03/17 at 08:15; Stop 03/04/17 at 08:14 Morphine Sulfate 1 mg PRN Q10MIN PRN IV SEVERE PAIN; Start 03/03/17 at 08:15; Stop 03/04/17 at 08:14 Ringer's Solution 1,000 ml @ 30 mls/hr Q24H IV ; Start 03/03/17 at 08:03; Stop 03/03/17 at 20:02 Lidocaine HCl (Xylocaine-Mpf 1% Vial) 2 ml 1X PRN PRN ID IV START; Start 03/03 at 08:15; Stop 03/04/17 at 08:14 Hydromorphone HCl (Dilaudid) 0.5 mg PRN Q10MIN PRN IV SEV PAIN, Second choice; Start 03/03/17 at 08:15; Stop 03/04/17 at 08:14 Prochlorperazine Edisylate (Compazine) 5 mg PACU PRN PRN IV NAUSEA, MRX1; Start 03/03/17 at 08:15; Stop 03/04/17 at 08:14 Lidocaine HCl 20 ml STK-MED ONCE .ROUTE ; Start 03/03/17 at 13:44; Stop at 13:45; Status DC Cellulose 1 each STK-MED ONCE .ROUTE ; Start 03/03/17 at 13:44; Stop 03/03/17 at 13:45; Status DC Protamine Sulfate 50 mg STK-MED ONCE IV ; Start 03/03/17 at 13:44; Stop at 13:45; Status DC Heparin Sodium (Porcine) 5000 unit/Ringer's Solution 505 ml @ 505 mls/hr 1X PERIOP ONCE IRR ; Start 03/03/17 at 14:00; Stop 03/03/17 at 14:59; Status DC Cefazolin Sodium 1 gm/Sodium Chloride 500 ml @ 500 mls/hr 1X PERIOP ONCE IRR ; Start 03/03/17 at 14:00; Stop 03/03/17 at 14:59; Status DC Amlodipine Besylate (Norvasc) 5 mg DAILY PO ; Start 03/04/17 at 09:00 Amlodipine Besylate (Norvasc) 5 mg 1X ONCE PO ; Start 03/03/17 at 14:15; Stop 03/03/17 at 14:16; Status DC Ropivacaine (Naropin 0.5%) 30 ml STK-MED ONCE .ROUTE ; Start 03/03/17 at 14:24 ; Stop 03/03/17 at 14:25; Status DC Midazolam HCl (Versed) 2 mg STK-MED ONCE .ROUTE ; Start 03/03/17 at 14:24; Stop 03/03/17 at 14:25; Status DC Heparin Sodium (Porcine) (Heparin Sodium) 10,000 unit STK-MED ONCE .ROUTE ; Start 03/03/17 at 14:43; Stop 03/03/17 at 14:44; Status DC Nicardipine HCl (Cardene) 25 mg STK-MED ONCE IV ; Start 03/03/17 at 14:43; Stop 03/03/17 at 14:44; Status DC Active Scripts Active Reported Atenolol 25 Mg Tablet 1 Tab PO DAILY Vitals/I & O Vital Sign - Last 24 Hours 03/02/17 03/02/17 03/02/17 03/02/17 19:14 19:39 20:19 20:42 Temp 97.5 97.5 Pulse 64 64 70 Resp 16 B/P (MAP) 199/71 (113) 199/71 196/84 (121) Pulse Ox 99 O2 Delivery Room Air Room Air 03/02/17 03/02/17 03/03/17 03/03/17 23:03 23:47 02:35 02:35 Temp 98.0 98.1 98.0 98.1 Pulse 68 72 63 62 Resp 16 17 B/P (MAP) 177/76 (109) 177/76 180/78 180/78 (112) Pulse Ox 98 97 O2 Delivery Room Air Room Air 03/03/17 03/03/17 03/03/17 03/03/17 07:00 08:00 08:43 08:45 Temp 97.7 97.7 Pulse 67 81 Resp 18 B/P (MAP) 187/86 (119) 187/86 Pulse Ox 95 O2 Delivery Room Air Room Air Room Air 03/03/17 03/03/17 03/03/17 11:00 13:53 15:01 Temp 97.8 98.1 97.8 98.1 Pulse 60 56 71 Resp 18 20 B/P (MAP) 174/84 (114) 203/95 161/78 Pulse Ox 98 97 O2 Delivery Room Air Room Air Intake and Output 03/02/17 03/02/17 03/03/17 15:00 23:00 07:00 Intake Total 100 ml 810 ml Output Total 200 ml 250 ml Balance -100 ml 560 ml MARIO LEONARDO MD Mar 03, 2017 15:48
[2017-03-03] MEDS ORDERED: PROPOFOL 20 ML IV ONE (16:30)
[2017-03-03] MEDS ORDERED: fentaNYL PF VIAL 100 MCG/2 ML VIAL ONE ×2 (16:53→18:04)
--- NOTE | 2017-03-03 19:15 | PDOC4 ---
OPERATIVE NOTE: Op note dictated Dx: right internal carotid stenosis, symptomatic Op: right carotid endarterectomy Surg: Sid Asst: Thors cervical block anesthesia. to rr in sat cond. FARHANA MATHUR II, MD Mar 03, 2017 19:15
[2017-03-03] MEDS ORDERED: HYDROcodone/APAP 5/325MG 1 TAB TABLET PO PRN (21:30)
[2017-03-03] MEDS: ATORVASTATIN CALCIUM 40 MG TABLET. PO SCH (22:55)
[2017-03-04] VITALS (17 sets, daily range): BP systolic 116–138; BP diastolic 55–76
--- NOTE | 2017-03-04 00:30 | OP ---
DATE OF SURGERY: 03/03/2017 PREOPERATIVE DIAGNOSIS: Right carotid stenosis, symptomatic. POSTOPERATIVE DIAGNOSIS: Right carotid stenosis, symptomatic. OPERATION PERFORMED: Right carotid endarterectomy. SURGEON: Farhana Lau M.D. RELATIONSHIP MANAGEMENT LEAD: Gian Muñoz DO ANESTHESIA: Cervical block. INDICATIONS: This is a 81-year-old gentleman who had a small right hemispheric stroke with resolution of symptoms. He had a severe stenosis of his right internal carotid artery in the proximal and mid segment. The operation risks and benefits were explained. 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 He tolerated the procedure without the need for a shunt. The bifurcation was high and there were a fair amount of inflammatory changes surrounding the blood vessel. The endarterectomy required was too long to allow for eversion type technique. A standard endarterectomy with patch closure was employed. DESCRIPTION OF PROCEDURE: After a cervical block anesthetic was administered, the right neck was prepped and draped in the usual manner. An incision was made along the anterior border of the sternocleidomastoid muscle. The common carotid was carefully dissected and encircled with umbilical tape. Further dissection more distally was carried out. The bifurcation was exposed. The external carotid was carefully dissected. The patient was given 7000 units of heparin and there was gentle traction on the bifurcation to allow the internal carotid to come a little bit more down into view. The hypoglossal nerve was carefully identified. The distal dissection was then required to allow for exposure of the distal internal. This was approximately 5 cm in length. The clamp was placed on the common and the distal internal carotid artery where it was soft and blue. An arteriotomy was then made and extended in both directions. The patient tolerated this well without the need for a shunt. A meticulous endarterectomy was then performed of the common external and internal carotid arteries. A nice endpoint was obtained distally under direct visualization. Care was made to remove all loose strands. A bovine patch was then placed using a 2 suture technique with HS7 Prolene. Prior to completing the patch closure, the vessels were flushed appropriately. Flow was then restored first to the external for several beats and then to the internal. No protamine was given. Hemostasis was adequate. A fully perforated drain was placed within the wound space and brought out through a separate small incision. The wound was then approximated with absorbable suture, the platysma with 2-0 Vicryl, the skin with 4-0 Vicryl and the skin with Steri-Strips as well. The patient tolerated the procedure well and was taken to the recovery room in satisfactory condition. ESTIMATED BLOOD LOSS: 50 mL. SPECIMENS: Plaque. DRAINS: Rakesh-[place]. FARHANA LAU MD DR: VICTOR MANUEL/duc JOB#: [id number] / [id number] GIAN Carrizales DO
[2017-03-04] MEDS: HYDROcodone/APAP 5/325MG 1 TAB TABLET PO PRN ×2 (03:09→21:36)
[2017-03-04 05:26] LABS: BASO % 1 % (0-3); EOS % 0 % (0-3); HEMATOCRIT 38.4 % (39.0-53.0); LYMPH # 1.3 x10^3/uL (1.0-4.8); LYMPH % 12 % (24-48); MEAN CORPUSCULAR HEMOGLOBIN 30 pg (25-35); MEAN CORPUSCULAR HGB CONC 34 g/dL (31-37); MEAN CORPUSCULAR VOLUME 88 fL (79-100); MONO % 7 % (0-9); NEUT % 80 % (31-73); PLATELET COUNT 161 x10^3/uL (140-400); RED BLOOD COUNT 4.36 x10^6/uL (4.30-5.70); RED CELL DISTRIBUTION WIDTH 13.8 % (11.5-14.5); WHITE BLOOD COUNT 10.8 x10^3/uL (4.0-11.0)
[2017-03-04 05:45] LABS: CALCIUM 8.5 mg/dL (8.5-10.1); GFR 72.1; POTASSIUM 3.6 mmol/L (3.5-5.1)
[2017-03-04] MEDS: ASPIRIN CHEWABLE 81 MG TABLET. PO SCH (08:46)
[2017-03-04] MEDS: CLOPIDOGREL BISULFATE 75 MG TABLET PO SCH (08:46)
[2017-03-04] MEDS: ATENOLOL 25 MG TABLET. PO SCH (08:47)
[2017-03-04] MEDS ORDERED: amLODIPine BESYLATE 5 MG TABLET PO SCH (09:00)
--- NOTE | 2017-03-04 12:57 | PDOC ---
PROGRESS NOTES Chief Complaint Chief Complaint Right frontal and parietal lob small subacute stroke HTN urgency Hld bl carotid internal A >70% stenosis HTN, uncontrolled overnight TIA new mild hypoxia, not present on admit, small 02 req, atelectasis likely, will ambulate, poss acute CHF History of Present Illness History of Present Illness some weakness and lethargy today overall feeling well cardene gtt started for htn will increase norvasc to 10, dose now . Is AOCx3 in NAD. Vitals Vitals Vital Signs Date Time Temp Pulse Resp B/P (MAP) Pulse Ox O2 Delivery O2 Flow Rate FiO2 03/04/17 12:00 58 138/76 (96) 03/04/17 10:50 98.3 16 96 Nasal Cannula 2.0 98.3 Physical Exam General: Alert, Oriented X3, Cooperative, No acute distress Heart: Regular rate, Normal S1, Normal S2 Lungs: Clear Abdomen: Normal bowel sounds, Soft, No tenderness Extremities: No clubbing, No cyanosis, No edema, Normal pulses Skin: No rashes, No breakdown, No significant lesion Labs LABS Laboratory Tests Test 03/04/17 03:50 White Blood Count 10.8 x10^3/uL (4.0-11.0) Red Blood Count 4.36 x10^6/uL (4.30-5.70) Hemoglobin 13.0 g/dL (13.0-17.5) Hematocrit 38.4 % (39.0-53.0) Mean Corpuscular Volume 88 fL (79-100) Mean Corpuscular Hemoglobin 30 pg (25-35) Mean Corpuscular Hemoglobin Concent 34 g/dL (31-37) Red Cell Distribution Width 13.8 % (11.5-14.5) Platelet Count 161 x10^3/uL (140-400) Neutrophils (%) (Auto) 80 % (31-73) Lymphocytes (%) (Auto) 12 % (24-48) Monocytes (%) (Auto) 7 % (0-9) Eosinophils (%) (Auto) 0 % (0-3) Basophils (%) (Auto) 1 % (0-3) Neutrophils # (Auto) 8.7 x10^3uL (1.8-7.7) Lymphocytes # (Auto) 1.3 x10^3/uL (1.0-4.8) Monocytes # (Auto) 0.8 x10^3/uL (0.0-1.1) Eosinophils # (Auto) 0.0 x10^3/uL (0.0-0.7) Basophils # (Auto) 0.0 x10^3/uL (0.0-0.2) Sodium Level 140 mmol/L (136-145) Potassium Level 3.6 mmol/L (3.5-5.1) Chloride Level 106 mmol/L (98-107) Carbon Dioxide Level 26 mmol/L (21-32) Anion Gap 8 (6-14) Blood Urea Nitrogen 20 mg/dL (8-26) Creatinine 1.0 mg/dL (0.7-1.3) Estimated GFR (Cockcroft-Gault) 72.1 Glucose Level 142 mg/dL (70-99) Calcium Level 8.5 mg/dL (8.5-10.1) Assessment and Plan Assessmemt and Plan discussed w. vascular DC soon will need 6 min walk Problems Medical Problems: (1) TIA (transient ischemic attack) Status: Acute Problems: Comment Review of Relevant I have reviewed the following items michelle (where applicable) has been applied. Labs Laboratory Tests Test 03/03/17 08:55 03/04/17 03:50 White Blood Count 6.9 x10^3/uL (4.0-11.0) 10.8 x10^3/uL (4.0-11.0) Red Blood Count 5.03 x10^6/uL (4.30-5.70) 4.36 x10^6/uL (4.30-5.70) Hemoglobin 14.7 g/dL (13.0-17.5) 13.0 g/dL (13.0-17.5) Hematocrit 44.1 % (39.0-53.0) 38.4 % (39.0-53.0) Mean Corpuscular Volume 88 fL (79-100) 88 fL (79-100) Mean Corpuscular Hemoglobin 29 pg (25-35) 30 pg (25-35) Mean Corpuscular Hemoglobin Concent 33 g/dL (31-37) 34 g/dL (31-37) Red Cell Distribution Width 13.7 % (11.5-14.5) 13.8 % (11.5-14.5) Platelet Count 188 x10^3/uL (140-400) 161 x10^3/uL (140-400) Neutrophils (%) (Auto) 65 % (31-73) 80 % (31-73) Lymphocytes (%) (Auto) 23 % (24-48) 12 % (24-48) Monocytes (%) (Auto) 10 % (0-9) 7 % (0-9) Eosinophils (%) (Auto) 2 % (0-3) 0 % (0-3) Basophils (%) (Auto) 1 % (0-3) 1 % (0-3) Neutrophils # (Auto) 4.5 x10^3uL (1.8-7.7) 8.7 x10^3uL (1.8-7.7) Lymphocytes # (Auto) 1.5 x10^3/uL (1.0-4.8) 1.3 x10^3/uL (1.0-4.8) Monocytes # (Auto) 0.7 x10^3/uL (0.0-1.1) 0.8 x10^3/uL (0.0-1.1) Eosinophils # (Auto) 0.1 x10^3/uL (0.0-0.7) 0.0 x10^3/uL (0.0-0.7) Basophils # (Auto) 0.0 x10^3/uL (0.0-0.2) 0.0 x10^3/uL (0.0-0.2) Sodium Level 142 mmol/L (136-145) 140 mmol/L (136-145) Potassium Level 4.0 mmol/L (3.5-5.1) 3.6 mmol/L (3.5-5.1) Chloride Level 105 mmol/L (98-107) 106 mmol/L (98-107) Carbon Dioxide Level 29 mmol/L (21-32) 26 mmol/L (21-32) Anion Gap 8 (6-14) 8 (6-14) Blood Urea Nitrogen 18 mg/dL (8-26) 20 mg/dL (8-26) Creatinine 1.0 mg/dL (0.7-1.3) 1.0 mg/dL (0.7-1.3) Estimated GFR (Cockcroft-Gault) 72.1 72.1 Glucose Level 100 mg/dL (70-99) 142 mg/dL (70-99) Calcium Level 9.3 mg/dL (8.5-10.1) 8.5 mg/dL (8.5-10.1) Laboratory Tests Test 03/04/17 03:50 White Blood Count 10.8 x10^3/uL (4.0-11.0) Red Blood Count 4.36 x10^6/uL (4.30-5.70) Hemoglobin 13.0 g/dL (13.0-17.5) Hematocrit 38.4 % (39.0-53.0) Mean Corpuscular Volume 88 fL (79-100) Mean Corpuscular Hemoglobin 30 pg (25-35) Mean Corpuscular Hemoglobin Concent 34 g/dL (31-37) Red Cell Distribution Width 13.8 % (11.5-14.5) Platelet Count 161 x10^3/uL (140-400) Neutrophils (%) (Auto) 80 % (31-73) Lymphocytes (%) (Auto) 12 % (24-48) Monocytes (%) (Auto) 7 % (0-9) Eosinophils (%) (Auto) 0 % (0-3) Basophils (%) (Auto) 1 % (0-3) Neutrophils # (Auto) 8.7 x10^3uL (1.8-7.7) Lymphocytes # (Auto) 1.3 x10^3/uL (1.0-4.8) Monocytes # (Auto) 0.8 x10^3/uL (0.0-1.1) Eosinophils # (Auto) 0.0 x10^3/uL (0.0-0.7) Basophils # (Auto) 0.0 x10^3/uL (0.0-0.2) Sodium Level 140 mmol/L (136-145) Potassium Level 3.6 mmol/L (3.5-5.1) Chloride Level 106 mmol/L (98-107) Carbon Dioxide Level 26 mmol/L (21-32) Anion Gap 8 (6-14) Blood Urea Nitrogen 20 mg/dL (8-26) Creatinine 1.0 mg/dL (0.7-1.3) Estimated GFR (Cockcroft-Gault) 72.1 Glucose Level 142 mg/dL (70-99) Calcium Level 8.5 mg/dL (8.5-10.1) Microbiology 02/28/17 Blood Culture - Preliminary, Resulted NO GROWTH AFTER 4 DAYS Medications Current Medications Nicardipine HCl 50 mg/Sodium Chloride 270 ml @ 0 mls/hr CONT PRN IV SEE I/O RECORD Last administered on 02/28/17 08:25; Start 02/28/17 at 08:15; Stop at 11:36; Status DC Acetaminophen (Tylenol) 650 mg 1X ONCE PO Last administered on 02/28/17 08: 30; Start 02/28/17 at 08:30; Stop 02/28/17 at 08:31; Status DC Sodium Chloride 1,000 ml @ 100 mls/hr Q10H IV Last administered on 02/28/17 09:52; Start 02/28/17 at 09:30; Stop 02/28/17 at 14:37; Status DC Simvastatin (Zocor) 10 mg QHS PO ; Start 02/28/17 at 21:00; Stop 02/28/17 at 21:00; Status DC Acetaminophen (Tylenol) 650 mg PRN Q6HRS PRN PO TEMP > 100.4F; Start 02/28/17 at 09:00 Acetaminophen (Acetaminophen Supp) 650 mg PRN Q4HRS PRN WI TEMP > 100.4F; Start 02/28/17 at 09:00; Stop 02/28/17 at 14:37; Status DC Aspirin (Children'S Aspirin) 81 mg DAILYWBKFT PO Last administered on 08:46; Start 02/28/17 at 09:30 Acetaminophen (Tylenol) 650 mg PRN Q6HRS PRN PO FEVER; Start 02/28/17 at 14:45 ; Stop 03/01/17 at 07:59; Status DC Ondansetron HCl (Zofran) 4 mg PRN Q6HRS PRN IV NAUSEA/VOMITING; Start at 14:45 Morphine Sulfate 2 mg PRN Q2HR PRN IV SEVERE PAIN; Start 02/28/17 at 14:45 Tramadol HCl (Ultram) 50 mg PRN Q6HRS PRN PO MILD PAIN; Start 02/28/17 at 14: 45 Hydralazine HCl (Apresoline Inj) 10 mg PRN Q4HRS PRN IVP ELEVATED BP, SEE COMMENTS Last administered on 03/03/17 13:53; Start 02/28/17 at 14:45 Docusate Sodium (Colace) 100 mg PRN DAILY PRN PO CONSTIPATION; Start 02/28/17 at 14:45 Atorvastatin Calcium (Lipitor) 40 mg QHS PO Last administered on 03/03/17 22: 55; Start 02/28/17 at 21:00 Enoxaparin Sodium (Lovenox 40mg Syringe) 40 mg Q24H SQ Last administered on 14:09; Start 02/28/17 at 15:00 Lisinopril (Prinivil) 40 mg DAILY PO ; Start 02/28/17 at 15:00; Stop 02/28/17 at 15:25; Status DC Atenolol (Tenormin) 25 mg DAILY PO Last administered on 03/04/17 08:47; Start 03/01/17 at 09:00 Clopidogrel Bisulfate (Plavix) 75 mg DAILYWBKFT PO Last administered on 08:46; Start 03/01/17 at 08:00 Nicotine (Nicoderm Cq 14mg) 1 patch PRN DAILY PRN TD SMOKING CESSATION Last administered on 03/02/17 14:08; Start 03/02/17 at 12:15 Alprazolam (Xanax) 0.25 mg PRN Q8HRS PRN PO ANXIETY / AGITATION Last administered on 03/02/17 18:07; Start 03/02/17 at 12:15 Labetalol HCl (Normodyne) 10 mg PRN Q2HR PRN IVP HYPERTENSION, SEE COMMENTS Last administered on 03/03/17 02:35; Start 03/02/17 at 21:15 Cefazolin Sodium 50 ml @ 100 mls/hr 1X ONCE IV Last administered on 16:45; Start 03/03/17 at 07:45; Stop 03/03/17 at 08:14; Status DC Ondansetron HCl (Zofran) 4 mg PRN Q6HRS PRN IV NAUSEA/VOMITING; Start at 08:15; Stop 03/04/17 at 08:14; Status DC Fentanyl Citrate (Fentanyl 2ml Vial) 25 mcg PRN Q5MIN PRN IV MILD PAIN; Start 03/03/17 at 08:15; Stop 03/04/17 at 08:14; Status DC Fentanyl Citrate (Fentanyl 2ml Vial) 50 mcg PRN Q5MIN PRN IV MODERATE PAIN; Start 03/03/17 at 08:15; Stop 03/04/17 at 08:14; Status DC Morphine Sulfate 1 mg PRN Q10MIN PRN IV SEVERE PAIN; Start 03/03/17 at 08:15; Stop 03/04/17 at 08:14; Status DC Ringer's Solution 1,000 ml @ 30 mls/hr Q24H IV ; Start 03/03/17 at 08:03; Stop 03/03/17 at 20:02; Status DC Lidocaine HCl (Xylocaine-Mpf 1% Vial) 2 ml 1X PRN PRN ID IV START; Start 03/03 at 08:15; Stop 03/04/17 at 08:14; Status DC Hydromorphone HCl (Dilaudid) 0.5 mg PRN Q10MIN PRN IV SEV PAIN, Second choice; Start 03/03/17 at 08:15; Stop 03/04/17 at 08:14; Status DC Prochlorperazine Edisylate (Compazine) 5 mg PACU PRN PRN IV NAUSEA, MRX1; Start 03/03/17 at 08:15; Stop 03/04/17 at 08:14; Status DC Lidocaine HCl 20 ml STK-MED ONCE .ROUTE Last administered on 03/03/17 16:54; Start 03/03/17 at 13:44; Stop 03/03/17 at 13:45; Status DC Cellulose 1 each STK-MED ONCE .ROUTE Last administered on 03/03/17 18:41; Start 03/03/17 at 13:44; Stop 03/03/17 at 13:45; Status DC Protamine Sulfate 50 mg STK-MED ONCE IV ; Start 03/03/17 at 13:44; Stop at 13:45; Status DC Heparin Sodium (Porcine) 5000 unit/Ringer's Solution 505 ml @ 505 mls/hr 1X PERIOP ONCE IRR Last administered on 03/03/17 16:54; Start 03/03/17 at 14: 00; Stop 03/03/17 at 14:59; Status DC Cefazolin Sodium 1 gm/Sodium Chloride 500 ml @ 500 mls/hr 1X PERIOP ONCE IRR Last administered on 03/03/17 16:54; Start 03/03/17 at 14:00; Stop 03/03/17 at 14:59; Status DC Amlodipine Besylate (Norvasc) 5 mg DAILY PO Last administered on 03/04/17 08: 47; Start 03/04/17 at 09:00; Stop 03/04/17 at 12:53; Status DC Amlodipine Besylate (Norvasc) 5 mg 1X ONCE PO ; Start 03/03/17 at 14:15; Stop 03/03/17 at 14:16; Status DC Ropivacaine (Naropin 0.5%) 30 ml STK-MED ONCE .ROUTE ; Start 03/03/17 at 14:24 ; Stop 03/03/17 at 14:25; Status DC Midazolam HCl (Versed) 2 mg STK-MED ONCE .ROUTE ; Start 03/03/17 at 14:24; Stop 03/03/17 at 14:25; Status DC Heparin Sodium (Porcine) (Heparin Sodium) 10,000 unit STK-MED ONCE .ROUTE ; Start 03/03/17 at 14:43; Stop 03/03/17 at 14:44; Status DC Nicardipine HCl (Cardene) 25 mg STK-MED ONCE IV ; Start 03/03/17 at 14:43; Stop 03/04/17 at 12:53; Status DC Propofol 20 ml @ As Directed STK-MED ONCE IV ; Start 03/03/17 at 16:30; Stop 03/03/17 at 16:31; Status DC Fentanyl Citrate (Fentanyl 2ml Vial) 100 mcg STK-MED ONCE .ROUTE ; Start at 16:53; Stop 03/03/17 at 16:54; Status DC Midazolam HCl (Versed) 2 mg STK-MED ONCE .ROUTE ; Start 03/03/17 at 16:59; Stop 03/03/17 at 17:00; Status DC Fentanyl Citrate (Fentanyl 2ml Vial) 100 mcg STK-MED ONCE .ROUTE ; Start at 18:04; Stop 03/03/17 at 18:05; Status DC Acetaminophen/ Hydrocodone Bitart (Lortab 5/325) 1 tab PRN Q6HRS PRN PO MODERATE PAIN Last administered on 03/04/17 03:09; Start 03/03/17 at 19:45 Nicardipine HCl 50 mg/Sodium Chloride 270 ml @ 0 mls/hr CONT PRN IV SEE I/O RECORD Last administered on 03/04/17 10:41; Start 03/03/17 at 21:15 Acetaminophen/ Hydrocodone Bitart (Lortab 5/325) 1 tab PRN Q6HRS PRN PO MODERATE PAIN; Start 03/03/17 at 21:30; Stop 03/04/17 at 10:27; Status DC Amlodipine Besylate (Norvasc) 10 mg DAILY PO ; Start 03/04/17 at 13:00; Status UNV Active Scripts Active Reported Atenolol 25 Mg Tablet 1 Tab PO DAILY Vitals/I & O Vital Sign - Last 24 Hours 03/03/17 03/03/17 03/03/17 03/03/17 13:53 15:00 15:01 19:01 Temp 97.6 98.1 97.6 98.1 Pulse 56 74 71 Resp 18 20 B/P (MAP) 203/95 168/77 (107) 161/78 Pulse Ox 97 97 O2 Delivery Room Air Room Air Nasal Cannula O2 Flow Rate 5 03/03/17 03/03/17 03/03/17 03/03/17 19:04 19:22 19:34 19:49 Temp 98.2 98.2 98.2 98.2 98.2 98.2 98.2 98.2 Pulse 78 60 62 58 Resp 20 20 20 20 B/P (MAP) 169/71 165/61 171/80 148/63 Pulse Ox 98 98 99 98 O2 Delivery Nasal Cannula Nasal Cannula Nasal Cannula Nasal Cannula O2 Flow Rate 5 3 3 3 03/03/17 03/03/17 03/03/17 03/03/17 20:04 20:19 20:34 20:48 Temp 98.2 98.2 98.2 98.1 98.2 98.2 98.2 98.1 Pulse 56 60 60 54 Resp 20 20 20 16 B/P (MAP) 140/58 152/59 148/60 123/56 (78) Pulse Ox 99 99 99 99 O2 Delivery Nasal Cannula Nasal Cannula Nasal Cannula Nasal Cannula O2 Flow Rate 3 3 2 2.0 03/03/17 03/03/17 03/03/17 03/03/17 21:03 21:18 21:33 21:48 Temp 98.8 98.8 Pulse 63 65 56 60 Resp 16 B/P (MAP) 125/60 (81) 131/80 (97) 111/54 (73) 117/59 (78) Pulse Ox 98 98 98 98 O2 Delivery Nasal Cannula Nasal Cannula Nasal Cannula Nasal Cannula O2 Flow Rate 2.0 2.0 2.0 2.0 03/03/17 03/03/17 03/03/17 03/04/17 22:03 22:33 23:03 00:03 Temp 99.1 99.1 Pulse 60 64 58 60 Resp 18 B/P (MAP) 111/55 (73) 118/56 (76) 133/60 (84) 131/60 (83) Pulse Ox 95 98 96 O2 Delivery Nasal Cannula Nasal Cannula Nasal Cannula O2 Flow Rate 2.0 2.0 2.0 03/04/17 03/04/17 03/04/17 03/04/17 01:03 02:03 03:03 03:09 Temp 98.7 98.7 Pulse 62 70 67 Resp 20 20 B/P (MAP) 126/60 (82) 130/62 (84) 124/56 (78) Pulse Ox 95 95 95 O2 Delivery Nasal Cannula Nasal Cannula Nasal Cannula O2 Flow Rate 2.0 2.0 2.0 03/04/17 03/04/17 03/04/17 03/04/17 04:03 04:10 05:03 06:03 Pulse 62 61 62 Resp 18 B/P (MAP) 122/59 (80) 125/55 (78) 125/60 (81) Pulse Ox 95 95 94 O2 Delivery Nasal Cannula Nasal Cannula Nasal Cannula O2 Flow Rate 2.0 2.0 2.0 03/04/17 03/04/17 03/04/17 03/04/17 07:00 08:00 08:00 08:47 Temp 98.1 98.1 Pulse 68 68 83 Resp 17 B/P (MAP) 122/59 (80) 132/62 (85) 122/59 Pulse Ox 95 O2 Delivery Nasal Cannula Nasal Cannula O2 Flow Rate 2.0 2.0 03/04/17 03/04/17 03/04/17 03/04/17 08:47 09:00 10:00 10:50 Temp 98.3 98.3 Pulse 74 68 56 65 Resp 16 B/P (MAP) 122/59 127/60 (82) 116/59 (78) 116/59 (78) Pulse Ox 96 O2 Delivery Nasal Cannula O2 Flow Rate 2.0 03/04/17 03/04/17 11:00 12:00 Pulse 60 58 B/P (MAP) 127/72 (90) 138/76 (96) MARIO LEONARDO MD Mar 04, 2017 12:57
[2017-03-04] MEDS ORDERED: IPRATRPIUM/ALBUTEROL 0.5/2.5MG 3 ML NEBU. NEB ONE (13:00)
[2017-03-04] MEDS: amLODIPine BESYLATE 10 MG TABLET PO SCH (13:00)
--- NOTE | 2017-03-04 13:02 | PDOC ---
Provider Note Provider Note Vascular S: Patient c/o incisional pain last pm, improved today with pain meds O: VSS, afebrile, still remains on Cardene gtt, O2 2L/NC unable to wean Alert and Ox3 HRR Dressing and drain removed, right neck incision dry and intact patient monitor equal speech clear, mild hoarseness A/P: POD #1 RCEA HTN-on Cardene gtt, discussed with Hospitalist, d/c gtt and resume Norvasc Respiratory 6 minute walk, wean O2 if possible Discussed disposition with Hospitalist, poss home tomorrow with home health Patient will need f/u in 2 weeks 03/18/2017 10:00 May shower tomorrow, keep bandaid over drain site until closed, steristrips remain in place 7-10 days Continue dual antiplatlet therapy ANA FULLER APRN Mar 04, 2017 13:02
[2017-03-04] MEDS: ENOXAPARIN 40 MG/0.4 ML SYRINGE. SQ SCH (15:00)
[2017-03-04] MEDS: IPRATRPIUM/ALBUTEROL 0.5/2.5MG 3 ML NEBU. NEB SCH ×2 (16:08→20:27)
--- NOTE | 2017-03-04 17:19 | RAD ---
Portable chest, 03/04/2017: History: Hypoxia The heart size and pulmonary vascularity are normal. There is tortuosity of the thoracic aorta. There is mild linear atelectasis or scarring in the lung bases, right greater than left. No pulmonary consolidation is seen. There is no evidence of pleural fluid. IMPRESSION: Mild bibasilar linear atelectasis or scarring.
--- NOTE | 2017-03-04 17:35 | PDOC ---
PROGRESS NOTES Assessment Assessment Tiny right posterior frontal lobe i fract. Bilateral carotid A stenosis > 70%. HTN HLD Obesity. RECOMMENDATIONS/PLAN: Plavix 75 mg daily. Lipitor 40 mg HS. Consulted vascular Surgery and endarterectomy performed on 03/04/17. Discussed with his family in all detail at bedside on 03/03/17. 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 Head: No traumatic brain or head injury. Skin: No edema, or rash. Ear: No infection. Eyes: No vision loss, or diplopia. Nose: No bleeding or purulent discharges. Hearing: No hearing decrease. Neck: No injury. Cardiac: HTN, HLD Pulmonary: No COPD.. GI: No GI Ulcer, GI bleeding Urinary/genital: UTI. Endocrine: No cousin face, craniofacial dysmorphism, polydactyly. Skeletomuscular: No muscular atrophy, deformity. Neurological: see HP. Psychiatric: Denies drug use/abuse. Otherwise, not [id number] review of systems. PHYSICAL EXAMINATION: General appearance in subacute distress. HEENT: Normocephalic and nontraumatic. Eyes, nose, ears, and throat are unremarkable. Neck is supple. No lymphadenopathy. N\No Crepitus. Cardiovascular: S1, S2, regular rate and rhythm. Pulmonary: Clear to auscultation bilaterally. Abdomen: Bowel sounds are positive. Extremities: No rash, lesions, or edema. No restriction of range of motion NEUROLOGICAL EXAMINATION: Alert. Oriented to time, place and person. PERRL. EOMI. CN: no focal findings. Muscle tone: within normal. Muscle strength: 5 DTR: 2 Plantar reflex: Flexor response bilaterally Gait: not examined in bed. Sensory exam: no abnormal findings. No cerebellar signs elicited. F-T-N test accurate. Objective Objective Vital Signs Date Time Temp Pulse Resp B/P (MAP) Pulse Ox O2 Delivery O2 Flow Rate FiO2 03/04/17 16:08 Nasal Cannula 2.0 03/04/17 14:57 98.3 64 16 122/58 (79) 97 98.3 Intake and Output 03/04/17 07:00 Intake Total 1200 ml Output Total 595 ml Balance 605 ml Intake Oral 660 ml IV Total 540 ml Output Urine Total 500 ml Drainage Total 45 ml Estimated Blood Loss 50 ml # Voids 5 Vitals Signs Vitals VS - Last 72 Hours, by Label Date Time Temp Pulse Resp B/P (MAP) Pulse Ox O2 Delivery O2 Flow Rate FiO2 03/04/17 16:08 Nasal Cannula 2.0 03/04/17 14:57 98.3 64 16 122/58 (79) 97 Nasal Cannula 2.0 98.3 03/04/17 14:49 Nasal Cannula 2.0 03/04/17 13:00 67 121/67 03/04/17 12:00 58 138/76 (96) 03/04/17 11:00 60 127/72 (90) 03/04/17 10:50 98.3 65 16 116/59 (78) 96 Nasal Cannula 2.0 98.3 03/04/17 10:00 56 116/59 (78) 03/04/17 09:00 68 127/60 (82) 03/04/17 08:47 74 122/59 03/04/17 08:47 83 122/59 03/04/17 08:00 Nasal Cannula 2.0 03/04/17 08:00 68 132/62 (85) 03/04/17 07:00 98.1 68 17 122/59 (80) 95 Nasal Cannula 2.0 98.1 03/04/17 06:03 62 125/60 (81) 94 Nasal Cannula 2.0 03/04/17 05:03 61 125/55 (78) 95 Nasal Cannula 2.0 03/04/17 04:10 18 95 Nasal Cannula 2.0 03/04/17 04:03 62 122/59 (80) 03/04/17 03:09 20 95 Nasal Cannula 2.0 03/04/17 03:03 67 124/56 (78) 95 Nasal Cannula 2.0 03/04/17 02:03 98.7 70 20 130/62 (84) 95 Nasal Cannula 2.0 98.7 03/04/17 01:03 62 126/60 (82) 03/04/17 00:03 60 131/60 (83) 03/03/17 23:03 99.1 58 18 133/60 (84) 96 Nasal Cannula 2.0 99.1 03/03/17 22:33 64 118/56 (76) 98 Nasal Cannula 2.0 03/03/17 22:03 60 111/55 (73) 95 Nasal Cannula 2.0 03/03/17 21:48 98.8 60 16 117/59 (78) 98 Nasal Cannula 2.0 98.8 03/03/17 21:33 56 111/54 (73) 98 Nasal Cannula 2.0 03/03/17 21:18 65 131/80 (97) 98 Nasal Cannula 2.0 03/03/17 21:03 63 125/60 (81) 98 Nasal Cannula 2.0 03/03/17 20:48 98.1 54 16 123/56 (78) 99 Nasal Cannula 2.0 98.1 03/03/17 20:34 98.2 60 20 148/60 99 Nasal Cannula 2 98.2 03/03/17 20:19 98.2 60 20 152/59 99 Nasal Cannula 3 98.2 03/03/17 20:04 98.2 56 20 140/58 99 Nasal Cannula 3 98.2 03/03/17 19:49 98.2 58 20 148/63 98 Nasal Cannula 3 98.2 03/03/17 19:34 98.2 62 20 171/80 99 Nasal Cannula 3 98.2 03/03/17 19:22 98.2 60 20 165/61 98 Nasal Cannula 3 98.2 03/03/17 19:04 98.2 78 20 169/71 98 Nasal Cannula 5 98.2 03/03/17 19:01 Nasal Cannula 5 03/03/17 15:01 98.1 71 20 161/78 97 Room Air 98.1 03/03/17 15:00 97.6 74 18 168/77 (107) 97 Room Air 97.6 03/03/17 13:53 56 203/95 03/03/17 11:00 97.8 60 18 174/84 (114) 98 Room Air 97.8 03/03/17 08:45 Room Air 03/03/17 08:43 81 187/86 03/03/17 08:00 Room Air 03/03/17 07:00 97.7 67 18 187/86 (119) 95 Room Air 97.7 Laboratory Laboratory Laboratory Tests Test 03/04/17 03:50 White Blood Count 10.8 x10^3/uL (4.0-11.0) Red Blood Count 4.36 x10^6/uL (4.30-5.70) Hemoglobin 13.0 g/dL (13.0-17.5) Hematocrit 38.4 % (39.0-53.0) Mean Corpuscular Volume 88 fL (79-100) Mean Corpuscular Hemoglobin 30 pg (25-35) Mean Corpuscular Hemoglobin Concent 34 g/dL (31-37) Red Cell Distribution Width 13.8 % (11.5-14.5) Platelet Count 161 x10^3/uL (140-400) Neutrophils (%) (Auto) 80 % (31-73) Lymphocytes (%) (Auto) 12 % (24-48) Monocytes (%) (Auto) 7 % (0-9) Eosinophils (%) (Auto) 0 % (0-3) Basophils (%) (Auto) 1 % (0-3) Neutrophils # (Auto) 8.7 x10^3uL (1.8-7.7) Lymphocytes # (Auto) 1.3 x10^3/uL (1.0-4.8) Monocytes # (Auto) 0.8 x10^3/uL (0.0-1.1) Eosinophils # (Auto) 0.0 x10^3/uL (0.0-0.7) Basophils # (Auto) 0.0 x10^3/uL (0.0-0.2) Sodium Level 140 mmol/L (136-145) Potassium Level 3.6 mmol/L (3.5-5.1) Chloride Level 106 mmol/L (98-107) Carbon Dioxide Level 26 mmol/L (21-32) Anion Gap 8 (6-14) Blood Urea Nitrogen 20 mg/dL (8-26) Creatinine 1.0 mg/dL (0.7-1.3) Estimated GFR (Cockcroft-Gault) 72.1 Glucose Level 142 mg/dL (70-99) Calcium Level 8.5 mg/dL (8.5-10.1) Microbiology 02/28/17 Blood Culture - Preliminary, Resulted NO GROWTH AFTER 4 DAYS Medication Medications Current Medications Acetaminophen/ Hydrocodone Bitart (Lortab 5/325) 1 tab PRN Q6HRS PRN PO MODERATE PAIN Last administered on 03/04/17 03:09; Start 03/03/17 at 19:45 Acetaminophen/ Hydrocodone Bitart (Lortab 5/325) 1 tab PRN Q6HRS PRN PO MODERATE PAIN; Start 03/03/17 at 21:30; Stop 03/04/17 at 10:27; Status DC Albuterol/ Ipratropium (Duoneb) 3 ml 1X ONCE NEB ; Start 03/04/17 at 13:00; Stop 03/04/17 at 13:01; Status DC Albuterol/ Ipratropium (Duoneb) 3 ml RTQID NEB Last administered on 03/04/17 16:08; Start 03/04/17 at 16:00 Amlodipine Besylate (Norvasc) 5 mg DAILY PO Last administered on 03/04/17 08: 47; Start 03/04/17 at 09:00; Stop 03/04/17 at 12:53; Status DC Amlodipine Besylate (Norvasc) 10 mg DAILY PO Last administered on 03/04/17 13 :00; Start 03/04/17 at 13:00 Fentanyl Citrate (Fentanyl 2ml Vial) 100 mcg STK-MED ONCE .ROUTE ; Start at 18:04; Stop 03/03/17 at 18:05; Status DC Nicardipine HCl 50 mg/Sodium Chloride 270 ml @ 0 mls/hr CONT PRN IV SEE I/O RECORD Last administered on 03/04/17 10:41; Start 03/03/17 at 21:15 Comment Review of Relevant I have reviewed the following items michelle (where applicable) has been applied. CAM MENDOSA MD Mar 04, 2017 17:35
[2017-03-04] MEDS: ATORVASTATIN CALCIUM 40 MG TABLET. PO SCH (20:20)
[2017-03-05 03:40] VITALS: BP 137/80
[2017-03-05 05:26] LABS: BASO % 1 % (0-3); EOS % 1 % (0-3); HEMATOCRIT 38.3 % (39.0-53.0); HEMOGLOBIN 13.1 g/dL (13.0-17.5); LYMPH # 1.7 x10^3/uL (1.0-4.8); LYMPH % 17 % (24-48); MEAN CORPUSCULAR HEMOGLOBIN 30 pg (25-35); MEAN CORPUSCULAR HGB CONC 34 g/dL (31-37); MEAN CORPUSCULAR VOLUME 88 fL (79-100); MONO % 12 % (0-9); NEUT % 71 % (31-73); PLATELET COUNT 144 x10^3/uL (140-400); RED BLOOD COUNT 4.35 x10^6/uL (4.30-5.70); RED CELL DISTRIBUTION WIDTH 13.7 % (11.5-14.5)
[2017-03-05 05:51] LABS: ALBUMIN 3.1 g/dL (3.4-5.0); ALBUMIN/GLOBULIN RATIO 1.1 (1.0-1.7); CALCIUM 8.3 mg/dL (8.5-10.1); CREATININE 0.9 mg/dL (0.7-1.3); GFR 81.4; POTASSIUM 3.9 mmol/L (3.5-5.1); TOTAL BILIRUBIN 1.2 mg/dL (0.2-1.0)
[2017-03-05 07:00] VITALS: BP 148/72
[2017-03-05] MEDS: IPRATRPIUM/ALBUTEROL 0.5/2.5MG 3 ML NEBU. NEB SCH (08:08)
[2017-03-05] MEDS: CLOPIDOGREL BISULFATE 75 MG TABLET PO SCH (08:29)
[2017-03-05] MEDS: ASPIRIN CHEWABLE 81 MG TABLET. PO SCH (08:30)
[2017-03-05] MEDS: ALPRAZolam 0.25 MG TABLET PO PRN (08:30)
[2017-03-05] MEDS: ATENOLOL 25 MG TABLET. PO SCH (08:30)
[2017-03-05] MEDS: amLODIPine BESYLATE 10 MG TABLET PO SCH (08:30)
[2017-03-05] MEDS ORDERED: CLOP75TA PO (09:06)
[2017-03-05] MEDS ORDERED: TRAM50TA PO (09:06)
[2017-03-05] MEDS ORDERED: ATOR40TA59 PO (09:06)
[2017-03-05] MEDS ORDERED: ASPI-630 PO (09:06)
[2017-03-05] MEDS ORDERED: AMLO10TA2 PO (09:06)
--- NOTE | 2017-03-05 09:15 | PDOC3 ---
Discharge Summary Visit Information Date of Admission: Feb 28, 2017 Date of Discharge: Mar 05, 2017 Admitting Diagnosis: CVA Final Diagnosis Right frontal and parietal lob small subacute stroke HTN urgency on admit Hyperlipids bl carotid internal A >70% stenosis HTN, uncontrolled overnight TIA symptoms transient mild hypoxia, atelectasis, post op tobacco ism Problems Medical Problems: (1) TIA (transient ischemic attack) Status: Acute Brief Hospital Course Allergies Allergies Coded Allergies Type Severity Reaction Last Updated Verified No Known Drug Allergies 02/28/17 No Vital Signs Vital Signs Date Time Temp Pulse Resp B/P (MAP) Pulse Ox O2 Delivery O2 Flow Rate FiO2 03/05/17 08:30 69 148/72 03/05/17 08:29 Room Air 03/05/17 08:10 96 03/05/17 07:00 98.5 20 98.5 03/04/17 22:40 2.0 Lab Results Laboratory Tests Test 03/04/17 03:50 03/05/17 04:45 White Blood Count 10.8 x10^3/uL (4.0-11.0) 10.0 x10^3/uL (4.0-11.0) Red Blood Count 4.36 x10^6/uL (4.30-5.70) 4.35 x10^6/uL (4.30-5.70) Hemoglobin 13.0 g/dL (13.0-17.5) 13.1 g/dL (13.0-17.5) Hematocrit 38.4 % (39.0-53.0) 38.3 % (39.0-53.0) Mean Corpuscular Volume 88 fL (79-100) 88 fL (79-100) Mean Corpuscular Hemoglobin 30 pg (25-35) 30 pg (25-35) Mean Corpuscular Hemoglobin Concent 34 g/dL (31-37) 34 g/dL (31-37) Red Cell Distribution Width 13.8 % (11.5-14.5) 13.7 % (11.5-14.5) Platelet Count 161 x10^3/uL (140-400) 144 x10^3/uL (140-400) Neutrophils (%) (Auto) 80 % (31-73) 71 % (31-73) Lymphocytes (%) (Auto) 12 % (24-48) 17 % (24-48) Monocytes (%) (Auto) 7 % (0-9) 12 % (0-9) Eosinophils (%) (Auto) 0 % (0-3) 1 % (0-3) Basophils (%) (Auto) 1 % (0-3) 1 % (0-3) Neutrophils # (Auto) 8.7 x10^3uL (1.8-7.7) 7.1 x10^3uL (1.8-7.7) Lymphocytes # (Auto) 1.3 x10^3/uL (1.0-4.8) 1.7 x10^3/uL (1.0-4.8) Monocytes # (Auto) 0.8 x10^3/uL (0.0-1.1) 1.2 x10^3/uL (0.0-1.1) Eosinophils # (Auto) 0.0 x10^3/uL (0.0-0.7) 0.1 x10^3/uL (0.0-0.7) Basophils # (Auto) 0.0 x10^3/uL (0.0-0.2) 0.0 x10^3/uL (0.0-0.2) Sodium Level 140 mmol/L (136-145) 141 mmol/L (136-145) Potassium Level 3.6 mmol/L (3.5-5.1) 3.9 mmol/L (3.5-5.1) Chloride Level 106 mmol/L (98-107) 105 mmol/L (98-107) Carbon Dioxide Level 26 mmol/L (21-32) 29 mmol/L (21-32) Anion Gap 8 (6-14) 7 (6-14) Blood Urea Nitrogen 20 mg/dL (8-26) 16 mg/dL (8-26) Creatinine 1.0 mg/dL (0.7-1.3) 0.9 mg/dL (0.7-1.3) Estimated GFR (Cockcroft-Gault) 72.1 81.4 Glucose Level 142 mg/dL (70-99) 102 mg/dL (70-99) Calcium Level 8.5 mg/dL (8.5-10.1) 8.3 mg/dL (8.5-10.1) BUN/Creatinine Ratio 18 (6-20) Total Bilirubin 1.2 mg/dL (0.2-1.0) Aspartate Amino Transf (AST/SGOT) 29 U/L (15-37) Alanine Aminotransferase (ALT/SGPT) 32 U/L (16-63) Alkaline Phosphatase 63 U/L (46-116) Total Protein 6.0 g/dL (6.4-8.2) Albumin 3.1 g/dL (3.4-5.0) Albumin/Globulin Ratio 1.1 (1.0-1.7) Laboratory Tests Test 03/05/17 04:45 White Blood Count 10.0 x10^3/uL (4.0-11.0) Red Blood Count 4.35 x10^6/uL (4.30-5.70) Hemoglobin 13.1 g/dL (13.0-17.5) Hematocrit 38.3 % (39.0-53.0) Mean Corpuscular Volume 88 fL (79-100) Mean Corpuscular Hemoglobin 30 pg (25-35) Mean Corpuscular Hemoglobin Concent 34 g/dL (31-37) Red Cell Distribution Width 13.7 % (11.5-14.5) Platelet Count 144 x10^3/uL (140-400) Neutrophils (%) (Auto) 71 % (31-73) Lymphocytes (%) (Auto) 17 % (24-48) Monocytes (%) (Auto) 12 % (0-9) Eosinophils (%) (Auto) 1 % (0-3) Basophils (%) (Auto) 1 % (0-3) Neutrophils # (Auto) 7.1 x10^3uL (1.8-7.7) Lymphocytes # (Auto) 1.7 x10^3/uL (1.0-4.8) Monocytes # (Auto) 1.2 x10^3/uL (0.0-1.1) Eosinophils # (Auto) 0.1 x10^3/uL (0.0-0.7) Basophils # (Auto) 0.0 x10^3/uL (0.0-0.2) Sodium Level 141 mmol/L (136-145) Potassium Level 3.9 mmol/L (3.5-5.1) Chloride Level 105 mmol/L (98-107) Carbon Dioxide Level 29 mmol/L (21-32) Anion Gap 7 (6-14) Blood Urea Nitrogen 16 mg/dL (8-26) Creatinine 0.9 mg/dL (0.7-1.3) Estimated GFR (Cockcroft-Gault) 81.4 BUN/Creatinine Ratio 18 (6-20) Glucose Level 102 mg/dL (70-99) Calcium Level 8.3 mg/dL (8.5-10.1) Total Bilirubin 1.2 mg/dL (0.2-1.0) Aspartate Amino Transf (AST/SGOT) 29 U/L (15-37) Alanine Aminotransferase (ALT/SGPT) 32 U/L (16-63) Alkaline Phosphatase 63 U/L (46-116) Total Protein 6.0 g/dL (6.4-8.2) Albumin 3.1 g/dL (3.4-5.0) Albumin/Globulin Ratio 1.1 (1.0-1.7) Brief Hospital Course Mr. Levy, is a 81-year-old male who awoke with some numbness and tingling with use of the left arm, a little numbness on the left side of his face and weakness. admit w.u TIA, CVA minor He had a carotid Doppler that showed bilateral severe carotid stenosis greater than 70% bilaterally with a peak systolic velocity of 370 on the right side, which would put that about 80-90%. An MRI showed small area of an increased diffusion image in the frontal lobe on the right side Discharge Information Condition at Discharge: Improved Follow Up: Weeks Disposition/Orders: D/C to Home Scheduled Amlodipine Besylate (Amlodipine Besylate), 10 MG PO DAILY Aspirin (Aspirin), 81 MG PO DAILYWBKFT Atenolol (Atenolol), 1 TAB PO DAILY, (Reported) Atorvastatin Calcium (Atorvastatin Calcium), 40 MG PO QHS Clopidogrel Bisulfate (Clopidogrel), 75 MG PO DAILYWBKFT Scheduled PRN Tramadol Hcl (Tramadol Hcl), 50 MG PO PRN Q6HRS PRN for MILD PAIN Patient Instructions Patient Instructions > 30 min face to face ECHO The left ventricular systolic function is normal and the ejection fraction is within normal range. The Ejection Fraction is 55-60%. There is normal LV segmental wall motion. The ascending aorta is mildly dilated at 3.7 cm. MARIO LEONARDO MD Mar 05, 2017 09:15
--- NOTE | 2017-03-05 10:01 | PDOC ---
SURGICAL PROGRESS NOTE Subjective no complaints. Loquacious Vital Signs Vital Signs Date Time Temp Pulse Resp B/P (MAP) Pulse Ox O2 Delivery O2 Flow Rate FiO2 03/05/17 08:30 69 148/72 03/05/17 08:29 Room Air 03/05/17 08:10 96 03/05/17 07:00 98.5 20 98.5 03/04/17 22:40 2.0 I&O Intake and Output 03/05/17 07:00 Intake Total 100 ml Output Total 1150 ml Balance -1050 ml Intake Oral 100 ml Output Urine Total 1150 ml PATIENT HAS A NUNO: No HEENT: Other (right cervical incision ok. ) Neuro: Normal gait, Normal speech, Strength at 5/5 X4 ext, Normal tone, Sensation intact, Reflexes 2+, Other (neuros baseline) Labs Laboratory Tests Test 03/04/17 03:50 03/05/17 04:45 White Blood Count 10.8 x10^3/uL (4.0-11.0) 10.0 x10^3/uL (4.0-11.0) Red Blood Count 4.36 x10^6/uL (4.30-5.70) 4.35 x10^6/uL (4.30-5.70) Hemoglobin 13.0 g/dL (13.0-17.5) 13.1 g/dL (13.0-17.5) Hematocrit 38.4 % (39.0-53.0) 38.3 % (39.0-53.0) Mean Corpuscular Volume 88 fL (79-100) 88 fL (79-100) Mean Corpuscular Hemoglobin 30 pg (25-35) 30 pg (25-35) Mean Corpuscular Hemoglobin Concent 34 g/dL (31-37) 34 g/dL (31-37) Red Cell Distribution Width 13.8 % (11.5-14.5) 13.7 % (11.5-14.5) Platelet Count 161 x10^3/uL (140-400) 144 x10^3/uL (140-400) Neutrophils (%) (Auto) 80 % (31-73) 71 % (31-73) Lymphocytes (%) (Auto) 12 % (24-48) 17 % (24-48) Monocytes (%) (Auto) 7 % (0-9) 12 % (0-9) Eosinophils (%) (Auto) 0 % (0-3) 1 % (0-3) Basophils (%) (Auto) 1 % (0-3) 1 % (0-3) Neutrophils # (Auto) 8.7 x10^3uL (1.8-7.7) 7.1 x10^3uL (1.8-7.7) Lymphocytes # (Auto) 1.3 x10^3/uL (1.0-4.8) 1.7 x10^3/uL (1.0-4.8) Monocytes # (Auto) 0.8 x10^3/uL (0.0-1.1) 1.2 x10^3/uL (0.0-1.1) Eosinophils # (Auto) 0.0 x10^3/uL (0.0-0.7) 0.1 x10^3/uL (0.0-0.7) Basophils # (Auto) 0.0 x10^3/uL (0.0-0.2) 0.0 x10^3/uL (0.0-0.2) Sodium Level 140 mmol/L (136-145) 141 mmol/L (136-145) Potassium Level 3.6 mmol/L (3.5-5.1) 3.9 mmol/L (3.5-5.1) Chloride Level 106 mmol/L (98-107) 105 mmol/L (98-107) Carbon Dioxide Level 26 mmol/L (21-32) 29 mmol/L (21-32) Anion Gap 8 (6-14) 7 (6-14) Blood Urea Nitrogen 20 mg/dL (8-26) 16 mg/dL (8-26) Creatinine 1.0 mg/dL (0.7-1.3) 0.9 mg/dL (0.7-1.3) Estimated GFR (Cockcroft-Gault) 72.1 81.4 Glucose Level 142 mg/dL (70-99) 102 mg/dL (70-99) Calcium Level 8.5 mg/dL (8.5-10.1) 8.3 mg/dL (8.5-10.1) BUN/Creatinine Ratio 18 (6-20) Total Bilirubin 1.2 mg/dL (0.2-1.0) Aspartate Amino Transf (AST/SGOT) 29 U/L (15-37) Alanine Aminotransferase (ALT/SGPT) 32 U/L (16-63) Alkaline Phosphatase 63 U/L (46-116) Total Protein 6.0 g/dL (6.4-8.2) Albumin 3.1 g/dL (3.4-5.0) Albumin/Globulin Ratio 1.1 (1.0-1.7) Laboratory Tests Test 03/05/17 04:45 White Blood Count 10.0 x10^3/uL (4.0-11.0) Red Blood Count 4.35 x10^6/uL (4.30-5.70) Hemoglobin 13.1 g/dL (13.0-17.5) Hematocrit 38.3 % (39.0-53.0) Mean Corpuscular Volume 88 fL (79-100) Mean Corpuscular Hemoglobin 30 pg (25-35) Mean Corpuscular Hemoglobin Concent 34 g/dL (31-37) Red Cell Distribution Width 13.7 % (11.5-14.5) Platelet Count 144 x10^3/uL (140-400) Neutrophils (%) (Auto) 71 % (31-73) Lymphocytes (%) (Auto) 17 % (24-48) Monocytes (%) (Auto) 12 % (0-9) Eosinophils (%) (Auto) 1 % (0-3) Basophils (%) (Auto) 1 % (0-3) Neutrophils # (Auto) 7.1 x10^3uL (1.8-7.7) Lymphocytes # (Auto) 1.7 x10^3/uL (1.0-4.8) Monocytes # (Auto) 1.2 x10^3/uL (0.0-1.1) Eosinophils # (Auto) 0.1 x10^3/uL (0.0-0.7) Basophils # (Auto) 0.0 x10^3/uL (0.0-0.2) Sodium Level 141 mmol/L (136-145) Potassium Level 3.9 mmol/L (3.5-5.1) Chloride Level 105 mmol/L (98-107) Carbon Dioxide Level 29 mmol/L (21-32) Anion Gap 7 (6-14) Blood Urea Nitrogen 16 mg/dL (8-26) Creatinine 0.9 mg/dL (0.7-1.3) Estimated GFR (Cockcroft-Gault) 81.4 BUN/Creatinine Ratio 18 (6-20) Glucose Level 102 mg/dL (70-99) Calcium Level 8.3 mg/dL (8.5-10.1) Total Bilirubin 1.2 mg/dL (0.2-1.0) Aspartate Amino Transf (AST/SGOT) 29 U/L (15-37) Alanine Aminotransferase (ALT/SGPT) 32 U/L (16-63) Alkaline Phosphatase 63 U/L (46-116) Total Protein 6.0 g/dL (6.4-8.2) Albumin 3.1 g/dL (3.4-5.0) Albumin/Globulin Ratio 1.1 (1.0-1.7) Problem List Problems Medical Problems: (1) TIA (transient ischemic attack) Status: Acute Assessment/Plan Imp: stable doing well post right CEA for symptomatic disease Rec: discharge today if ok with primary MD f/u in my clinic in 2 weeks. Pt will need to call for appt may shower and carefully feed his donkey plavix for 6 weeks. Problems: FARHANA MATHUR II, MD Mar 05, 2017 10:01
[2017-03-05 11:54] VITALS: BP 140/64
== END 2017-03-05 14:02 | disposition home or self-care (01) | DRG 37 ==
LOC: ER 06:47 → 6 SOUTH 07:45 → 2 NORTH 10:37
PROVIDERS: ADMIT Internal Medicine; ATTEND Internal Medicine
PROC: 03UH0KZ Supplement Right Common Carotid Artery with Nonautologous Tissue Substitute, Open Approach (ICD-10-PCS; 2017-03-03)
PROC: 03CH0Z6 (ICD-10-PCS; principal; 2017-03-03 15:00)
DX: I65.23 Occlusion and stenosis of bilateral carotid arteries (principal); I63.9 Cerebral infarction, unspecified; J98.11 Atelectasis; I16.0 Hypertensive urgency; E66.9 Obesity, unspecified; E78.00 Pure hypercholesterolemia, unspecified; I10 Essential (primary) hypertension; G62.9 Polyneuropathy, unspecified; R09.02 Hypoxemia; Z72.0 Tobacco use; Z68.26 Body mass index [BMI] 26.0-26.9, adult; Z79.02 Long term (current) use of antithrombotics/antiplatelets; Z79.82 Long term (current) use of aspirin; Z79.899 Other long term (current) drug therapy; Z82.49 Family history of ischemic heart disease and other diseases of the circulatory system
CPT/HCPCS: 36415; 70450; 70551; 71010; 80048; 80053; 80061; 85025; 85027; 85610; 85730; 87040; 93005; 93306; 93880; 94250; 94620; 94640; 96365; 96366; C1769; J0360; J0690; J1644; J1650; J2250; J2704; J2795; J3010; J3490; J7030; J7040; J7050; J7120; J7620; 92610; 97110; 97530; 99285-25

== ENCOUNTER 2017-04-01 20:25 | Emergency (ER) | payer MEDICARE, OTHER ==
[2017-04-01 20:25] VITALS: BP 156/84
[~2017-04-01 20:25] MED LIST: AMLO10TA2 PO; ASPI-630 PO; ATEN25TA PO; ATOR40TA59 PO; CLOP75TA PO; CRESTOR40 MG PO; POLY17PO29 PO; TRAM50TA PO
--- NOTE | 2017-04-01 20:46 | EKG ---
[facility] [address] [place] [address] Test Date: 2017-04-01 Test Time: 20:35:16 Pat Name: ANABEL CHESTER Department: Room: Gender: Box Inspector: : 1935 Requested By: ALETHA ERVIN Order Number: [id number] Reading MD: Measurements Intervals [place] Rate: 62 P: 38 AK: 132 QRS: 26 QRSD: 94 T: 0 QT: 386 QTc: 394 Interpretive Statements SINUS RHYTHM NO SPECIFIC ECG ABNORMALITIES RI6.01 No previous ECG available for comparison
--- NOTE | 2017-04-01 21:09 | PHYS DOC ---
Past Medical History Past Medical History: CVA, High Cholesterol, Hypertension, Other Past Surgical History: Other Additional Past Surgical Histo: RT CAROTID ENDARTERECTOMY Alcohol Use: Rarely Drug Use: None Adult General Chief Complaint Chief Complaint: HYPERTENSION HPI HPI Patient is a 81 year old male who presents with onset prior to arrival of feeling anxious and noted to have a blood pressure 215/109 at home after getting and evaluated with his daughter over politics. Patient currently has an absolutely no complaints after being transported by EMS. Patient has no headache blurry vision chest pain or shortness of breath or abdominal pain or leg swelling. Review of Systems Review of Systems Constitutional: Denies fever or chills [] Eyes: Denies change in visual acuity, redness, or eye pain [] HENT: Denies nasal congestion or sore throat [] Respiratory: Denies cough or shortness of breath [] Cardiovascular: No additional information not addressed in HPI [] GI: Denies abdominal pain, nausea, vomiting, bloody stools or diarrhea [] : Denies dysuria or hematuria [] Musculoskeletal: Denies back pain or joint pain [] Integument: Denies rash or skin lesions [] Neurologic: Denies headache, focal weakness or sensory changes [] Endocrine: Denies polyuria or polydipsia [] All other systems were reviewed and found to be within normal limits, except as documented in this note. Allergies Allergies Allergies Coded Allergies Type Severity Reaction Last Updated Verified No Known Drug Allergies 02/28/17 No Physical Exam Physical Exam Constitutional: Well developed, well nourished, no acute distress, non-toxic appearance. [] HENT: Normocephalic, atraumatic, bilateral external ears normal, oropharynx moist, no oral exudates, nose normal. Patient is status post right carotid endarterectomy scars well healed [] Eyes: PERRLA, EOMI, conjunctiva normal, no discharge. [] Neck: Normal range of motion, no tenderness, supple, no stridor. [] Cardiovascular:Heart rate regular rhythm, no murmur [] Lungs & Thorax: Bilateral breath sounds clear to auscultation [] Abdomen: Bowel sounds normal, soft, no tenderness, no masses, no pulsatile masses. [] Skin: Warm, dry, no erythema, no rash. [] Back: No tenderness, no CVA tenderness. [] Extremities: No tenderness, no cyanosis, no clubbing, ROM intact, no edema. [] Neurologic: Alert and oriented X 3, normal motor function, normal sensory function, no focal deficits noted. [] Psychologic: Affect normal, judgement normal, mood normal. [] Current Patient Data Vital Signs Vital Signs Date Time Temp Pulse Resp B/P (MAP) Pulse Ox O2 Delivery O2 Flow Rate FiO2 04/01/17 20:25 97.7 64 19 156/84 (108) 98 Room Air 97.7 EKG EKG EKG normal sinus rhythm rate of 62 no STEMI QTC normal my interpretation[] Radiology/Procedures Radiology/Procedures [] Course & Med Decision Making Course & Med Decision Making Pertinent Labs and Imaging studies reviewed. (See chart for details) [She is without symptoms or complaints his blood pressure is currently 156/84 patient stable for dismissal home.] Dragon Disclaimer Dragon Disclaimer This electronic medical record was generated, in whole or in part, using a voice recognition dictation system. Departure Departure Impression: Primary Impression: Chronic hypertension Disposition: HOME, SELF-CARE Condition: IMPROVED Referrals: RUDY CARPENTER MD (PCP) Patient Instructions: Hypertension, [id number] ALETHA ERVIN MD Apr 01, 2017 21:09
== END 2017-04-01 21:25 | disposition home or self-care (01) ==
LOC: ER 20:25
DX: I10 Essential (primary) hypertension (principal); E78.00 Pure hypercholesterolemia, unspecified; Z86.73 Personal history of transient ischemic attack (TIA), and cerebral infarction without residual deficits
CPT/HCPCS: 93005; 99283-25

== ENCOUNTER 2017-04-10 03:39 | Emergency (ER) | payer OTHER, MEDICARE ==
[~2017-04-10] VITALS: Ht 175.3 cm; Wt 74.8 kg
[2017-04-10 05:16] LABS: BASO # 0.1 x10^3/uL (0.0-0.2); BASO % 0 % (0-3); EOS % 1 % (0-3); HEMATOCRIT 40.7 % (39.0-53.0); HEMOGLOBIN 13.7 g/dL (13.0-17.5); LYMPH % 9 % (24-48); MEAN CORPUSCULAR HEMOGLOBIN 29 pg (25-35); MEAN CORPUSCULAR HGB CONC 34 g/dL (31-37); MEAN CORPUSCULAR VOLUME 88 fL (79-100); MONO % 7 % (0-9); NEUT % 84 % (31-73); PLATELET COUNT 179 x10^3/uL (140-400); RED BLOOD COUNT 4.65 x10^6/uL (4.30-5.70); RED CELL DISTRIBUTION WIDTH 13.9 % (11.5-14.5); WHITE BLOOD COUNT 12.2 x10^3/uL (4.0-11.0)
[2017-04-10 05:26] LABS: CALCIUM 9.1 mg/dL (8.5-10.1); GFR 72.1; POTASSIUM 4.1 mmol/L (3.5-5.1)
[2017-04-10 05:32] LABS: ALBUMIN 4.1 g/dL (3.4-5.0); ALBUMIN/GLOBULIN RATIO 1.4 (1.0-1.7); TOTAL BILIRUBIN 0.6 mg/dL (0.2-1.0); TOTAL PROTEIN 7.1 g/dL (6.4-8.2)
--- NOTE | 2017-04-10 06:29 | EKG ---
[facility] [address] [place] [address] Test Date: 2017-04-10 Test Time: 05:10:40 Pat Name: ANABEL CHESTER Department: Room: Gender: M Vp Cardiovascular: JOHN PAUL : 1935 Requested By: YARI SCHUMACHER Order Number: [id number] Reading MD: Measurements Intervals [place] Rate: 59 P: 41 PA: 164 QRS: 16 QRSD: 98 T: -11 QT: 412 QTc: 412 Interpretive Statements SINUS RHYTHM NON SPECIFIC T ABNORMALITY BORDERLINE ECG No previous ECG available for comparison
--- NOTE | 2017-04-10 07:29 | PHYS DOC ---
Past Medical History Past Medical History: CVA, High Cholesterol, Hypertension, Other Past Surgical History: Other Additional Past Surgical Histo: RT CAROTID ENDARTERECTOMY Alcohol Use: None Drug Use: None Adult General Chief Complaint Chief Complaint: HYPERTENSION HPI HPI Patient is a 81 year old male that woke up in the night and felt numbness in left arm so he took his BP and it was elevated. he took his blood pressure medicine, aspirin, and cholesterol med. then his BP decreased to 110, arm numbness improved but he felt weak. he almost passed out, didn't hit his head but hit left ribs. he called ems because he lives by himself and felt weak all over. currently he feels normal. he denies weakness, numbness, chest pain, soa. he states his ribs hurt though. no blood in urine. he had a tia 2 weeks and CEA. he states these sx happen most evenings. he states he feels fine in the morning and then weak and high blood pressure in the evenings. tonight it just made him weaker. Review of Systems Review of Systems Constitutional: Denies fever or chills [] Eyes: Denies change in visual acuity, redness, or eye pain [] HENT: Denies nasal congestion or sore throat [] Respiratory: Denies cough or shortness of breath left rib pain Cardiovascular: No additional information not addressed in HPI [] GI: Denies abdominal pain, nausea, vomiting, bloody stools or diarrhea [] : Denies dysuria or hematuria [] Musculoskeletal: Denies back pain or joint pain [] Integument: Denies rash or skin lesions [] Neurologic: Denies headache, focal weakness or sensory changes diffuse weakness Endocrine: Denies polyuria or polydipsia [] All other systems were reviewed and found to be within normal limits, except as documented in this note. Allergies Allergies Allergies Coded Allergies Type Severity Reaction Last Updated Verified No Known Drug Allergies 02/28/17 No Physical Exam Physical Exam Constitutional: Well developed, well nourished, no acute distress, non-toxic appearance. [] HENT: Normocephalic, atraumatic, bilateral external ears normal, oropharynx moist, no oral exudates, nose normal. CEA incision is C/d/i Eyes: PERRLA, EOMI, conjunctiva normal, no discharge. [] Neck: Normal range of motion, no tenderness, supple, no stridor. [] Cardiovascular:Heart rate regular rhythm, no murmur Lungs & Thorax: Bilateral breath sounds clear to auscultation bruising over left posterior ribs, no crepitus. Abdomen: Bowel sounds normal, soft, no tenderness, no masses, no pulsatile masses. no pain to palpation Skin: Warm, dry, no erythema, no rash. [] Back: No tenderness, no CVA tenderness. [] Extremities: No tenderness, no cyanosis, no clubbing, ROM intact, no edema. [] Neurologic: Alert and oriented X 3, normal motor function, normal sensory function, no focal deficits noted. no decreased sensation. NIH 0 Psychologic: Affect normal, judgement normal, mood normal. alert and oriented x 3, no slurred speech, understanding conversation Current Patient Data Vital Signs Vital Signs Date Time Temp Pulse Resp B/P (MAP) Pulse Ox O2 Delivery O2 Flow Rate FiO2 04/10/17 06:44 64 22 95 04/10/17 03:53 98.2 133/60 (84) Room Air 98.2 Lab Values Laboratory Tests Test 04/10/17 05:05 White Blood Count 12.2 x10^3/uL (4.0-11.0) H Red Blood Count 4.65 x10^6/uL (4.30-5.70) Hemoglobin 13.7 g/dL (13.0-17.5) Hematocrit 40.7 % (39.0-53.0) Mean Corpuscular Volume 88 fL (79-100) Mean Corpuscular Hemoglobin 29 pg (25-35) Mean Corpuscular Hemoglobin Concent 34 g/dL (31-37) Red Cell Distribution Width 13.9 % (11.5-14.5) Platelet Count 179 x10^3/uL (140-400) Neutrophils (%) (Auto) 84 % (31-73) H Lymphocytes (%) (Auto) 9 % (24-48) L Monocytes (%) (Auto) 7 % (0-9) Eosinophils (%) (Auto) 1 % (0-3) Basophils (%) (Auto) 0 % (0-3) Neutrophils # (Auto) 10.2 x10^3uL (1.8-7.7) H Lymphocytes # (Auto) 1.0 x10^3/uL (1.0-4.8) Monocytes # (Auto) 0.8 x10^3/uL (0.0-1.1) Eosinophils # (Auto) 0.1 x10^3/uL (0.0-0.7) Basophils # (Auto) 0.1 x10^3/uL (0.0-0.2) Sodium Level 142 mmol/L (136-145) Potassium Level 4.1 mmol/L (3.5-5.1) Chloride Level 103 mmol/L (98-107) Carbon Dioxide Level 31 mmol/L (21-32) Anion Gap 8 (6-14) Blood Urea Nitrogen 21 mg/dL (8-26) Creatinine 1.0 mg/dL (0.7-1.3) Estimated GFR (Cockcroft-Gault) 72.1 BUN/Creatinine Ratio 21 (6-20) H Glucose Level 114 mg/dL (70-99) H Calcium Level 9.1 mg/dL (8.5-10.1) Total Bilirubin 0.6 mg/dL (0.2-1.0) Aspartate Amino Transferase (AST) 23 U/L (15-37) Alanine Aminotransferase (ALT) 38 U/L (16-63) Alkaline Phosphatase 101 U/L (46-116) Troponin I Quantitative < 0.017 ng/mL (0.000-0.055) Total Protein 7.1 g/dL (6.4-8.2) Albumin 4.1 g/dL (3.4-5.0) Albumin/Globulin Ratio 1.4 (1.0-1.7) Laboratory Tests 04/10/17 05:05 Laboratory Tests 04/10/17 05:05 EKG EKG time 0510 HR 60 no STEMI[] Radiology/Procedures Radiology/Procedures .no pneumothorax or effusion[] Course & Med Decision Making Course & Med Decision Making Pertinent Labs and Imaging studies reviewed. (See chart for details) pt feels normal now. pt ambulates in room with no weakness or lightheadedness. no chest pain. 02 sat normal. he refuses admission. he states he feels normal now and just wants BP regulated. since this happens at night, I recommend taking atenolol in the morning and amlodipine at evening. he can call cardiology in the morning for follow-up. I told him if he has any sx again that he HAS to return for admission. []pt is pacing room and states he is ready to go home Dragon Disclaimer Dragon Disclaimer This electronic medical record was generated, in whole or in part, using a voice recognition dictation system. Departure Departure Impression: Primary Impression: Rib contusion Disposition: HOME, SELF-CARE Condition: IMPROVED Referrals: RUDY CARPENTER MD (PCP) Patient Instructions: Rib Contusion Additional Instructions: take tylenol for pain. call your doctor today for a recheck tomorrow. take your atenolol in the morning and amlodipine at 5pm. return if difficulty breathing, blood in urine, weakness, lightheaded or any other concerns YARI SCHUMACHER MD Apr 10, 2017 07:29
[2017-04-10 07:42] VITALS: BP 136/72
--- NOTE | 2017-04-10 07:45 | RAD ---
Indication: Left-sided rib pain, fall. Time of exam 0739 hours. Correlation is made with prior chest from 03/22/2017. The lungs are clear. No parenchymal contusion, effusion or pneumothorax is seen. No displaced rib fracture is detected. Impression: No acute abnormality is detected.
== END 2017-04-10 08:04 | disposition home or self-care (01) ==
LOC: ER 03:39
DX: S20.212A Contusion of left front wall of thorax, initial encounter (principal); E78.00 Pure hypercholesterolemia, unspecified; I10 Essential (primary) hypertension; Z86.73 Personal history of transient ischemic attack (TIA), and cerebral infarction without residual deficits; Z79.82 Long term (current) use of aspirin; Z79.899 Other long term (current) drug therapy; W22.8XXA Striking against or struck by other objects, initial encounter; Y93.89 Activity, other specified; Y92.89 Other specified places as the place of occurrence of the external cause; Y99.8 Other external cause status
CPT/HCPCS: 36415; 71010; 80053; 84484; 85025; 93005; 99285-25

== ENCOUNTER → 2018-08-26 | Outpatient (CLI) | payer OTHER ==
[~2018-08-26] MED LIST changes: -AMLO10TA2 PO; +AMLO10TA8 PO; +REGADENOSON 0.4 MG/5 ML DISP.SYRIN. IV ONE
--- NOTE | 2018-08-26 09:30 | RAD ---
MR#: [id number] Date of Study: 08/26/2018 Ordering Physician: QUANG LIM, Referring Physician: QUANG LIM, Tech: Juan Greenwood MBA, RDMS, RVT, RDCS, RTR APPROVED REPORT Patient Location: OUT-PATIENT Laterality:Bilateral Indications Carotid artery disease/previous rt cea last year Doppler Spectral Velocity Analysis Right Left pCCA 64/15 cm/spCCA 81/18 cm/s mCCA 95/22 cm/smCCA 80/17 cm/s dCCA 68/19 cm/sdCCA 89/19 cm/s Bulb 51/13 cm/sBulb 105/23 cm/s ECA 85/ cm/sECA 101/ cm/s pICA 95/27 cm/spICA 251/66 cm/s Francine 93/29 cm/smICA 222/54 cm/s dICA 106/32 cm/sdICA 172/49 cm/s Vert. 24/ cm/sVert. 76/ cm/s Subcl. 80/ cm/sSubcl. 121/ cm/s ICA/CCA 1.12ICA/CCA 3.10 Findings Grayscale images of the bilateral carotid arteries demonstrate moderate plaque at the level of the ca rotid bulb greater on the left than the right. Spectral waveforms and color Doppler involving the right carotid vessels are within normal limits. No significant obstruction is noted. Overall 0 to less than 50% stenosis based on velocity criteria. No rmal ICA to CCA ratios noted. On the left there are elevated velocities in the internal carotid vessels demonstrating greater than 70% stenosis by velocity criteria. ICA to CCA ratios are also elevated. Vertebral velocities are antegrade bilaterally. No significant subclavian stenosis noted. Critical Notification Critical Value: No <Conclusion> 1. Greater than 70% stenosis involving the left ICA. Signed by : Enoch Hanna, Electronically Approved : 08/26/2018 09:30:08
--- NOTE | 2018-08-26 12:35 | RAD ---
MR#: [id number] Date of Study: 08/26/2018 Ordering Physician: QUANG LIM, Referring Physician: XI TALAMANTES Tech: TEJAL Jimenez APPROVED REPORT Test Type: Pharmacological Stress Nurse/Tech: Sanket DOE Test Indications: Chest discomfort Cardiac History: HTN, Smoker x30yrs, See EMR Medications: ASA, See EMR Medical History: TIA, See EMR Resting ECG: SB Resting Heart Rate: 47 bpm Resting Blood Pressure: 131/64mmHg Pretest Chest Pain: No chest pain Nurse/Tech Notes Lungs CTA, Heart tones regular Consent: The procedure was explained to the patient in lay terms. Informed consent was witnessed. Glenn eout was entered into [employer]. History and Stress Test performed by ITZEL Pablo, CORNELIA (R) (N) Pharm. Details Pharmacologic stress testing was performed using 0.4mg per 5ml of regadenoson given intravenously ove r 7-10 seconds. Stress Symptoms Nausea POST EXERCISE Reason for Termination: Infusion complete Max HR: 117 bpm Max Blood Pressure: 130/68mmHg Blood Pressure response to exercise: Normal blood pressure response during stress. Chest Pain: No. Arrhythmia: No. ST Change: No. INTERPRETATION Stress EKG Conclusion: Baseline EKG showed sinus rhythm. No ischemic changes at peak stress. No arr hythmias. Imaging Protocol IMAGE PROTOCOL: Rest Tc-99m/stress Tc-99m 1 day Rest: Stress: Viability: Radiopharm.Tc99m [id number] Sestamibi Dose11.2mCi 33mCi Duration 16min. 13min. Img Date 08/26/2018 08/26/2018 Inj-Img Gnqo31xii. 60min. Rest Admin Site:IV - Right AntecubitalAdministrator:TEJAL Jimenez Stress Admin Site: IV - Right AntecubitalAdministrator: ITZEL Pablo, CHANTELLET (R)(N) STRESS DATA End Diast. Vol.76.0mlLVEDV index BSA40.0ml End Syst. Vol.19.0mlLVESV index BSA10.0ml Myocardial Emlx914.0gEject. Awwjfshz30.0% Stress Scores Regional WT1.00Summed WT14.00 Regional WM0.00Summed WM0.00 Study quality was good. Left Ventricular size was Normal at Rest and Stress. Lung uptake was . Left Ventricular ejection fraction is 75%. The rest and stress images show normal perfusion, normal contraction and thickening. LV Perf. Quant 17 Seg. SSS0.00 17 Seg. SRS0.00 17 Seg. SDS0.00 Stress Defect Extent (% LAD)0.00Rest Defect Extent (% LAD)0.00Rev. Defect Extent (% LAD)0.00 Stress Defect Extent (% LCX) 0.00Rest Defect Extent (% LCX)0.00Rev. Defect Extent (% LCX)0.00 Stress Defect Extent (% RCA)0.00Rest Defect Extent (% RCA)0.00Rev. Defect Extent (% RCA)0.00 Stress Defect Extent (% CODY)0.00Rest Defect Extent (% CODY)0.00Rev. Defect Extent (% CODY)0.00 Conclusion 1. Regadenoson cardioisotope stress test did not show any evidence of ischemia or infarct. 2. Normal left ventricular systolic function with ejection fraction calculated at 75%. 3. Low risk for cardiac events. Signed by : Miguelangel Veronica, Electronically Approved : 08/26/2018 12:34:30
== END | disposition home or self-care (01) ==
LOC: NM 08:07
PROVIDERS: ATTEND Internal Medicine Cardiovascular Disease
DX: I65.23 Occlusion and stenosis of bilateral carotid arteries (principal); I10 Essential (primary) hypertension; Z87.891 Personal history of nicotine dependence; Z86.73 Personal history of transient ischemic attack (TIA), and cerebral infarction without residual deficits; Z98.890 Other specified postprocedural states
CPT/HCPCS: 78452; 93017; 93880; A9500; J2785

== ENCOUNTER → 2018-12-03 | Outpatient (CLI) | payer OTHER ==
[~2018-12-03] MED LIST changes: -REGADENOSON 0.4 MG/5 ML DISP.SYRIN. IV ONE
--- NOTE | 2018-12-03 17:00 | KCIC ---
Supine and upright views of the abdomen Clinical indications: Abdominal pain and cramping. Hernia. FINDINGS: Mildly dilated loops of small bowel are seen within the right side of the abdomen. Small air-fluid levels are present. Air and stool is seen within the colon and rectum. Findings could reflect mild partial small bowel obstruction or enteritis. No free intraperitoneal air is seen. IMPRESSION: Findings may represent mild partial small bowel obstruction or enteritis. Electronically signed by: Aamir Castro MD (12/03/2018 4:58 PM) [place] [id number]
== END | disposition home or self-care (01) ==
LOC: KCIC 14:02
PROVIDERS: ATTEND Family Medicine
DX: K46.9 Unspecified abdominal hernia without obstruction or gangrene (principal)
CPT/HCPCS: 74021

== ENCOUNTER → 2019-01-05 | Outpatient (CLI) | payer OTHER ==
[~2019-01-05] MED LIST changes: +IOHEXOL 240 MG/ML 50ML VIAL. PO ONE; +IOHEXOL 300 MG/ML 100ML VIAL. IV ONE
--- NOTE | 2019-01-05 11:32 | KCIC ---
EXAM: CT Abdomen and Pelvis with IV contrast CLINICAL HISTORY: ABDOMINAL PAIN, CRAMPING, EVALUATE FOR BOWEL OBSTRUCTION. Hernia RLQ, pt had 3 days of diarrhea, had constipation also COMPARISON: none TECHNIQUE: Helical CT of the abdomen and pelvis was performed following the administration of intravenous contrast. Axial, coronal and sagittal reformatted images were generated. PQRS compliance statement - One or more of the following individualized dose reduction techniques were utilized for this study: 1. Automated exposure control 2. Adjustment of the mA and/or kV according to patient size 3. Use of iterative reconstruction technique FINDINGS: Lower chest: Linear opacities in the lower lobes likely scarring/atelectasis. Abdomen and Pelvis: 1.2 cm right hepatic dome cystic lesion is seen. A 6 mm right hepatic dome hypodense lesion is too small to accurately characterize. Regions of hepatic hypoattenuation likely fatty infiltration. Spleen is unremarkable. Adrenal glands are normal. Pancreas is unremarkable. Symmetric nephrograms. Bilateral renal cystic lesions are seen. No hydronephrosis. No hydroureter. Bladder is decompressed. Moderate colonic stool content is seen. Appendix is not seen. No small or large bowel dilatation. No evidence for bowel obstruction. Right inguinal hernia is seen containing fat, likely direct and indirect hernia. Associated small volume fluid and inflammatory change. No associated pneumatosis, free intraperitoneal gas or loculated fluid collection. Small bilateral hydroceles. No abdominal or pelvic lymphadenopathy by size criteria. A few mildly prominent mesenteric and retroperitoneal lymph nodes are seen. Aortic calcifications are noted. Bones: Degenerative changes of the spine are seen. IMPRESSION: 1. Fat infiltration is seen about a segment of terminal ileum and cecum in the right lower quadrant. This is nonspecific and may be related to infectious or inflammatory enteritis/colitis. Although ischemia is not entirely excluded no pneumatosis or pneumoperitoneum is seen. These fat inflammatory changes partially track into the direct and indirect right glenohumeral hernias with small bilateral hydroceles. 2. No bowel obstruction. No bowel herniation. Electronically signed by: Horacio Ledesma MD (01/05/2019 11:29 AM) [facility]
== END | disposition home or self-care (01) ==
LOC: KCIC CT 08:01
PROVIDERS: ATTEND Family Medicine
DX: N43.3 Hydrocele, unspecified (principal); K76.89 Other specified diseases of liver; N28.89 Other specified disorders of kidney and ureter; J98.4 Other disorders of lung
CPT/HCPCS: 74177; Q9966; Q9967

== ENCOUNTER → 2020-08-24 | Outpatient (CLI) | payer MEDICARE, OTHER ==
[2020-03-07 11:00] VITALS: BP 126/72
[~2020-08-24] MED LIST changes: +AMLO-187 PO; -AMLO10TA8 PO; +ATEN1TAB3 PO; +DOCU-153 PO; -IOHEXOL 240 MG/ML 50ML VIAL. PO ONE; -IOHEXOL 300 MG/ML 100ML VIAL. IV ONE; +POTA20TA4 PO
--- NOTE | 2020-08-24 16:53 | KCIC ---
Examination: Double contrast esophagram HISTORY: History of gastroesophageal reflux COMPARISON: None available Findings/ impression: There is questionable mild narrowing of the distal esophagus at the gastroesophageal junction with mi ld delay in esophageal motility. Mild gastroesophageal reflux identified. Consider endoscopic evaluat ion. Total fluoroscopic time 2 minutes 28 seconds. Total fluoroscopic images 10. Electronically signed by: Everardo Soto MD (08/24/2020 4:51 PM) [id number]
== END ==
LOC: KCIC 09:46
PROVIDERS: ATTEND Student in an Organized Health Care Education/Training Program
DX: K21.9 Gastro-esophageal reflux disease without esophagitis (principal)
CPT/HCPCS: 74220

== ENCOUNTER → 2021-08-01 | Outpatient (CLI) | payer OTHER ==
[2020-03-07 11:00] VITALS: BP 126/72
[~2021-08-01] MED LIST changes: +DOCU-148 PO; -DOCU-153 PO; +POTA-121 PO; -POTA20TA4 PO
--- NOTE | 2021-08-01 13:41 | KCIC ---
EXAM: XR BILAT FEET 3 VIEWS 08/01/2021 12:49 PM CLINICAL INDICATION: Chronic bilateral foot pain, greater on the left COMPARISON: None TECHNIQUE: AP, oblique, and lateral views of the right left foot FINDINGS: Left foot: No acute fracture. Alignment is normal. There is a hammertoe deformity of the second toe. Joint spaces are maintained. Small osteophytes along the dorsal midfoot. Soft tissues normal. Right foot: No acute fracture. Alignment is normal. Old healed fracture of the third proximal phalanx . There are small subchondral lucencies and irregularity of the second and third metatarsal heads, wh ich may be due to degenerative joint disease or osteonecrosis. Mild degenerative joint disease of the fourth MTP joint. The remaining joint spaces are maintained. Small dorsal osteophytes in the midfoot . Soft tissues normal. IMPRESSION: Left foot: 1. No acute osseous abnormality or arthritis. 2. Hammertoe deformity of the second toe. Right foot: 1. 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 2. Old healed third proximal phalanx fracture. 3. Hammertoe deformity of the second toe. Electronically signed by: Trena Garcia MD (08/01/2021 1:38 PM) [id number]
== END ==
LOC: KCIC 12:46
PROVIDERS: ATTEND Family Medicine
DX: M19.072 Primary osteoarthritis, left ankle and foot (principal); M20.42 Other hammer toe(s) (acquired), left foot; M20.41 Other hammer toe(s) (acquired), right foot; M25.771 Osteophyte, right ankle; M25.772 Osteophyte, left ankle
CPT/HCPCS: 73630-50